=== PATIENT | female | born 1975 | race Caucasian/White ===

== ENCOUNTER → 2018-02-14 16:46 | Outpatient (CLI) | payer OTHER, SELFPAY ==
[2018-02-14 18:31] LABS: Hemoglobin A1c 8.2 % (4.2-6.3)
== END ==
PROVIDERS: Family Provider Internal Medicine; PCP Internal Medicine; Visit Provider Internal Medicine
DX: E11.65 Type 2 diabetes mellitus with hyperglycemia (principal)
CPT/HCPCS: 36415; 83036

== ENCOUNTER → 2018-05-04 14:17 | Outpatient (CLI) | payer OTHER, SELFPAY ==
--- NOTE | 2018-05-04 14:23 | RAD_ITS ---
STUDY: X-RAY - RIGHT FOOT CLINICAL: Pain. TECHNIQUE: 3 view(s) of the foot. COMPARISON: None. FINDINGS: There is a small plantar calcaneal enthesophyte. Normal visualized subtalar, talonavicular, calcaneocuboid, tarsal and tarsometatarsal articulations. There is mild enthesopathy at the base of the fifth metatarsal. Normal metatarsophalangeal joint of the great toe. Normal tibial and fibular sesamoid bones. Normal interphalangeal joint of the great toe. Normal phalanges of the great toe. Normal second through fifth metatarsophalangeal joints. Normal interphalangeal joints and phalanges of the lesser toes. The soft tissue structures are unremarkable. RAD/Foot min 3 Views IMPRESSION: Calcaneal and fifth metatarsal enthesopathy. Otherwise, unremarkable x-ray examination of the right foot. Electronically Signed: Albaro Michele MD at 13:46 EDT Tel , Service support ,
== END ==
PROVIDERS: Family Provider Internal Medicine; PCP Internal Medicine; Referring Provider Nurse Practitioner; Visit Provider Nurse Practitioner
DX: M79.671 Pain in right foot (principal)
CPT/HCPCS: 73630

== ENCOUNTER → 2018-08-23 15:17 | Outpatient (CLI) | payer OTHER, SELFPAY ==
[2018-08-27 11:07] LABS: HPV HC, High Risk Negative (Negative)
== END ==
PROVIDERS: Visit Provider Obstetrics & Gynecology
DX: Z12.4 Encounter for screening for malignant neoplasm of cervix (principal)
CPT/HCPCS: 87624; 88175; G0145

== ENCOUNTER → 2018-09-02 15:42 | Outpatient (CLI) | payer OTHER, SELFPAY ==
--- NOTE | 2018-09-02 15:45 | MRI_ITS ---
STUDY: MRI RIGHT REARFOOT WITHOUT CONTRAST REASON FOR EXAM: Pain, swelling and burning of right foot since summer. TECHNIQUE: Standardized fat and water weighted pulse sequences were obtained in all 3 orthogonal planes. COMPARISON: Radiographs 05/04/2018. FINDINGS: There is edema in the anterior subcutis adipose space of the distal lower leg. There is no space-occupying lesion in the tarsal tunnel. Normal posterior tibialis tendon. Normal flexor digitorum longus tendon. Normal flexor hallucis longus tendon. Normal peroneus longus and brevis tendons. Normal tibialis anterior tendon. Normal extensor hallucis longus tendon. Normal extensor digitorum longus tendons. Normal Achilles tendon and teno-osseous insertion. There is a low-lying soleus muscle (T1 sagittal image 9). There is mild periaponeurotic edema of the central cord of plantar fascia (inversion recovery sagittal image 8). There is a small plantar calcaneal enthesophyte. Normal intrinsic muscles of the rearfoot. Normal distal tibiofibular syndesmotic ligamentous complex. Normal lateral ligamentous complex. There are small cysts in the sinus tarsi (inversion recovery sagittal images 13, 14). There is mild reactive bone edema in the talus adjacent to the sinus tarsi (inversion recovery sagittal images 11, 12). Normal deltoid ligamentous complexes. Normal plantar calcaneonavicular (spring) ligament. Normal tibiotalar articulation. Normal talar dome. Normal subtalar articulations. Normal talonavicular articulation. Normal calcaneocuboid articulation. Normal navicular-cuneiform articulations. There is no bone edema or stress fracture of the fifth metatarsal. MRI/Lower Ext/No Jt/w/o IMPRESSION: Mild plantar fasciitis. Small cyst in the sinus tarsi and mild reactive bone edema in the talus adjacent to the sinus tarsi. No demonstrated peroneal tendinosis/tenosynovitis or fifth metatarsal stress fracture. Electronically Signed: Albaro Michele MD at 9:13 EST Tel , Service support ,
== END ==
PROVIDERS: Family Provider Internal Medicine; PCP Internal Medicine; Referring Provider Podiatrist; Visit Provider Podiatrist
DX: M76.71 Peroneal tendinitis, right leg (principal); M84.374A Stress fracture, right foot, initial encounter for fracture; M72.2 Plantar fascial fibromatosis
CPT/HCPCS: 73718

== ENCOUNTER → 2018-11-04 09:07 | Outpatient (CLI) | payer OTHER, SELFPAY ==
--- NOTE | 2018-11-04 09:12 | RAD_ITS ---
STUDY: X-RAY CHEST REASON FOR EXAM: Female, 43 years old. Fever, cough, chills TECHNIQUE: PA and lateral views of the chest. COMPARISON: None. FINDINGS: The lungs are clear and expanded. There is no demonstrated pleural abnormality. Normal size heart. Normal mediastinum and heather. Normal visualized pulmonary arteries. Normal visualized aortic arch and descending thoracic aorta. Normal visualized thoracic spine. Normal visualized ribs, clavicles, and shoulders. There is no demonstrated abnormality of the visualized soft tissue structures of the upper abdomen. RAD/Chest PA and Lateral IMPRESSION: Normal x-ray examination of the chest. Electronically Signed: Jaime Caraballo MD at 12:19 EDT , Service support ,
== END ==
PROVIDERS: Family Provider Internal Medicine; PCP Internal Medicine; Referring Provider Internal Medicine; Visit Provider Internal Medicine
DX: R09.89 Other specified symptoms and signs involving the circulatory and respiratory systems (principal)
CPT/HCPCS: 71046

== ENCOUNTER → 2018-11-25 12:59 | Outpatient (CLI) | payer OTHER, SELFPAY ==
--- NOTE | 2018-11-25 13:01 | BI_ITS ---
MAMMOGRAPHY - BILATERAL SCREENING REASON FOR EXAM: Female, 43 years old. Routine annual screening examination. PERTINENT HISTORY: Non-contributory. TECHNIQUE: Digital bilateral breast juany (3D mammographic acquisition) in the CC and MLO projections. 2-D mediolateral oblique (MLO) and craniocaudad (CC) views of both breasts were obtained. CAD: Full Field Digital Mammography with Computer Added Detection was performed. COMPARISON: Comparison is made with prior mammogram dated April 25, 2015 and October 19, 2016. FINDINGS: Breast Composition: There are scattered areas of fibroglandular density. Is evidence of a 1.5 cm x 1.8 cm well-defined nodule in the central slightly lateral aspect of the right breast. This also evidence of an 8 mm well-defined nodule in the superior lateral portion of the right breast. Correlation with ultrasound is recommended. No other significant abnormalities are identified. BI/SCREENING MAMM (CAD), BILAT IMPRESSION: 2 nodular densities are seen in the right breast as described. Correlation with ultrasound is recommended. ASSESSMENT CATEGORY: BIRADS Category 0: Incomplete. Need additional imaging evaluation. A letter regarding these results will be sent to the patient by the facility within 30 days. Approximately 10% of breast cancers are not detected by mammography. A normal mammogram should not delay biopsy of a clinically suspicious abnormality. [id number] Electronically Signed: Joshua Garza, at 14:08 EDT , Service support ,
== END ==
PROVIDERS: Family Provider Internal Medicine; PCP Internal Medicine; Referring Provider Obstetrics & Gynecology; Visit Provider Obstetrics & Gynecology
DX: Z12.31 Encounter for screening mammogram for malignant neoplasm of breast (principal)
CPT/HCPCS: 77063; 77067

== ENCOUNTER → 2018-12-02 | Outpatient (CLI) | payer OTHER, SELFPAY ==
--- NOTE | 2018-12-02 15:34 | US_ITS ---
STUDY: ULTRASOUND BREAST - RIGHT REASON FOR EXAM: Female, 43 years old. Abnormal screening mammogram. TECHNIQUE: Axial and longitudinal images of the RIGHT breast were performed with a high resolution ultrasound transducer. COMPARISON: Comparison is made with prior mammogram dated November 25, 2018 and prior ultrasound of the right breast dated April 29, 2015. FINDINGS: RIGHT Breast: There is a 1.7 cm x 1.2 cm x 0.9 cm cyst at the 8:00 position of the breast at 6 I'm is some nipple. This also evidence of a 1 cm x 0.6 cm x 0.4 cm cyst at the 9:00 position of the breast at 7 cm from nipple. US/Breast Limited Unilateral IMPRESSION: The mammographic abnormality corresponds to 2 cysts as described. Routine annual mammographic follow-up is recommended. ASSESSMENT CATEGORY: BIRADS Category 2: Benign. A letter regarding these results will be sent to the patient by the facility within 30 days. Electronically Signed: Joshua Garza, at 13:10 EDT , Service support ,
== END | disposition home or self-care (01) ==
LOC: OPUS 15:32
PROVIDERS: Family Provider Internal Medicine; PCP Internal Medicine; Referring Provider Obstetrics & Gynecology; Visit Provider Obstetrics & Gynecology
DX: N60.01 Solitary cyst of right breast (principal)
CPT/HCPCS: 76642

== ENCOUNTER → 2019-03-16 | Outpatient (CLI) | payer OTHER, SELFPAY ==
[2019-03-16 08:57] LABS: Absolute Lymphocyte Count 1.35 X10^3/uL (0.83-4.51); Absolute Neutrophil Count 2.4 X10^3/uL (2.0-7.7); Basophil# 0.02 X10^3/uL; Basophil% 0.5 % (0-1); Eosinophil# 0.07 X10^3/uL; Eosinophils% 1.7 % (0-5); Hematocrit 40.9 % (37-47); Hemoglobin 13.4 g/dL (12.0-15.0); Lymphocyte # 1.35 X10^3/ul (4.0); Mean Corp Hgb Conc 32.8 g/dL (32-36); Mean Corpuscular Volume 85.4 fL (81-99); Monocyte# 0.25 X10^3/uL; Monocyte% 6.1 % (0-10); NRBC Flagged by Analyzer 0 % (0-5); Neutrophil # 2.39 X10^3/uL (2.7-7.7); Neutrophil % 58.5 % (47-70); Platelet Count 95 K/mm3 (150-450); RBC Distribution Width CV 12.5 % (11.6-14.6); Red Blood Count 4.79 M/mm3 (4.2-5.4); White Blood Count 4.1 K/mm3 (4.4-11.0)
[2019-03-16 09:13] LABS: Differential Comment SCANNED; Platelet Estimate SLT DEC (ADEQ)
[2019-03-16 09:21] LABS: Microalbumin,Random Urine 89.3 mg/L (NO RANGE EST.); Microalbumin:Creatinine Ratio 46.3 mg/g CRE (<30 mg/g CRE)
[2019-03-16 09:31] LABS: AST(SGOT) 117 U/L (15-37); Alanine Aminotransfer ALT/SGPT 64 U/L (13-56); Albumin, Serum 3.5 g/dL (3.2-5.0); Alkaline Phosphatase 91 U/L (45-117); Anion Gap 5 (5-15); BUN 12 mg/dL (7-18); BUN/Creat Ratio 14.1 RATIO (10-20); Calcium,Total 9.1 mg/dL (8.5-10.1); Chloride 103 mmol/L (98-107); Creatinine, Serum 0.85 mg/dL (0.55-1.02); EST Glomerular Filtration Rate 77 mL/min (>60); Est Glom Filt Rate - Afr Amer 93 mL/min (>60); Globulin 3.6 g/dL (2.2-4.2); Glucose 273 mg/dL (74-106); Potassium 4.2 mmol/L (3.5-5.1); Protein, Total 7.1 g/dL (6.4-8.2); Sodium Level 136 mmol/L (136-145); Thyroid Stim Hormone (TSH) 3.05 uIU/mL (0.358-3.74)
[2019-03-16 09:39] LABS: Hemoglobin A1c 9.4 % (4.2-6.3)
[2019-03-17 14:08] LABS: CHOLESTEROL TOTAL 155 mg/dL (100-199); HDL-C 46 mg/dL (>39); HDL-P TOTAL 29.5 umol/L (>=30.5); SMALL LDL-P 751 nmol/L (<=527); TRIGLYCERIDES 127 mg/dL (0-149)
[2019-03-17 15:26] LABS: INSULIN RESISTANCE SCORE 49 (<=45); LDL SIZE 20.4 nm (>20.5); LDL-C 84 mg/dL (0-99); LDL-P 1560 nmol/L (<1000)
== END | disposition home or self-care (01) ==
LOC: LAB.FUTURE 08:06
PROVIDERS: Family Provider Internal Medicine; PCP Internal Medicine; Referring Provider Internal Medicine; Visit Provider Internal Medicine
DX: E11.65 Type 2 diabetes mellitus with hyperglycemia (principal); E78.00 Pure hypercholesterolemia, unspecified
CPT/HCPCS: 36415; 80053; 80061; 82043; 82570; 83036; 83704; 84443; 85025

== ENCOUNTER 2019-04-26 08:02 | Outpatient (RCR) | payer OTHER, SELFPAY | END 2019-05-08 23:59 | LOC: DC 08:02 | PROVIDERS: Family Provider Internal Medicine; PCP Internal Medicine; Visit Provider Internal Medicine | DX: E11.65 Type 2 diabetes mellitus with hyperglycemia (principal); Z71.3 Dietary counseling and surveillance | CPT/HCPCS: G0108 ==

== ENCOUNTER 2019-05-17 14:17 | Outpatient (RCR) | payer OTHER, SELFPAY | END 2019-05-17 23:59 | disposition home or self-care (01) | LOC: DC 14:17 | PROVIDERS: Family Provider Internal Medicine; PCP Internal Medicine; Visit Provider Internal Medicine | DX: Z71.3 Dietary counseling and surveillance (principal); E11.65 Type 2 diabetes mellitus with hyperglycemia | CPT/HCPCS: G0108 ==

== ENCOUNTER → 2019-05-19 07:47 | Outpatient (CLI) | payer OTHER, SELFPAY ==
--- NOTE | 2019-05-19 07:59 | CT_ITS ---
STUDY: CT ABDOMEN WITH CONTRAST REASON FOR EXAM: Female, 44 years old. Left upper quadrant pain RADIATION DOSAGE (If Supplied By Facility): CTDIvol = ( 17.24 ) mGy, DLP = ( 821.82 ) mGycm TECHNIQUE: Transaxial images were obtained post I.V. administration of IV/Oral Isovue 300 100, and oral contrast. Sagittal and coronal images were reconstructed. Individualized dose optimization techniques were used for this CT. COMPARISON: None. FINDINGS: The visualized lung bases are unremarkable. The visualized portions of the heart are within normal limits. The liver is normal. The spleen is normal. The adrenal glands are normal. The head, body, and tail of the pancreas are normal. The kidneys are normal with no evidence of calyceal calculi, masses, or obstructive uropathy seen. The abdominal aorta appears to be normal and no periaortic lymphadenopathy is seen. No abdominal masses or lesions are identified. Bone scan comparison of the lumbar spine were reviewed with coronal and sagittal planes and show no additional abnormalities. No intra-abdominal masses or lesions are seen. CT/Abdomen WITH IV Contrast IMPRESSION: Normal enhanced CT of the abdomen. Electronically Signed: Saul Conway, at 13:33 EDT Tel , Service support ,
== END ==
PROVIDERS: Family Provider Internal Medicine; PCP Internal Medicine; Referring Provider Internal Medicine Gastroenterology; Visit Provider Internal Medicine Gastroenterology
DX: K76.0 Fatty (change of) liver, not elsewhere classified (principal); D69.6 Thrombocytopenia, unspecified
CPT/HCPCS: 74160; Q9967

== ENCOUNTER 2020-01-13 22:03 | Emergency (ER) | payer OTHER, SELFPAY ==
[2020-01-13 22:04] VITALS: BP 149/85; PULSE 69; RESP 15; TEMP 36.3; O2SAT 95; BMI 33.3
--- NOTE | 2020-01-13 22:25 | ED.DCSUM_ITS ---
History of Present Illness Chief Complaint: Other, Pain/Inj Informant: Patient Onset: Yesterday Narrative: Patient was playing with a stray cat that she feeds daily. Cat stepped on her foot and she jerked. This caused him to scratch her toes with the right foot. When she woke today there is some more localized swelling and almost like a blood blister as well as some lymphangitic streaking. No fevers. She believes her last tetanus shot was about 15 years ago. Past Medical History - Allergies and Home Meds Allergies/Adverse Reactions: Allergies amoxicillin [Amoxicillin] Allergy (Verified 01/13/20 22:08) Other Penicillins Allergy (Verified 01/13/20 22:08) Swelling hydromorphone HCl [From Dilaudid] Adverse Reaction (Verified 01/13/20 22:08) Vomiting Sulfa (Sulfonamide Antibiotics) Adverse Reaction (Verified 01/13/20 22:08) Vomiting Primary Care Physician: Laly Schwab DO [Primary Care Provider] - Smoking Status: Never smoker Review of Systems General: Denies: Chills, Fever, Sweats Eyes: Denies: Visual changes - bilaterally, Diplopia ENT: Denies: Rhinorrhea, Sore throat Cardiovascular: Denies: Chest pain, Palpitations Respiratory: Denies: Dyspnea, Cough, Dyspnea on exertion Gastrointestinal: Denies: Abdominal pain, Nausea, Vomiting, Diarrhea, Melena, Hematochezia Genitourinary: Denies: Dysuria, Hematuria, Frequency Musculoskeletal: Denies: Back pain, Extremity Pain Skin: Reports: Wounds. Denies: Rash Neurological: Denies: Headache, Weakness, Numbness Physical Exam Vital Signs/Narrative: Vital Signs Temp Pulse Resp BP Pulse Ox 01/13/20 22:04 97.3 F L 69 15 149/85 H 95 Inital Vital Signs reviewed: Yes General: Well nourished, Well developed, No Acute Distress Head: Normocephalic, Atraumatic Eyes: Perrl, EOMI ENT: Moist mucous membranes, No rhinorrhea Neck: Supple, Nontender Cardiovascular: Regular rate, Regular rhythm, No murmurs Respiratory: No distress, CTA bilaterally, Chest nontender Abdomen: Soft, Nontender, Nondistended, Normal bowel sounds Back: Nontender, Normal Inspection Extremities: Nontender, No edema Skin: No rash, Trauma, - - There is a abrasion with hematoma in the lateral aspect of the toe. There is lymphangitic streaking noted. This extends up to the ankle calf is not a factor. Neurological: Alert, Oriented x3, Cranial nerves II-XII grossly intact, Normal Strength, Normal Sensation Psychological: Normal affect, Normal Mood Diagnostic/Tx/Re-eval - Medical Decision Making Tetanus will be updated with Adacel. Due to penicillin allergy she will be started on doxycycline. Return if worsening or concerns. ED Disposition - Plan for ED Patient: Disposition: Home or Assisted Living Diagnosis: Cat scratch, Lymphangitis Instructions: ED Bite Cat Prescriptions: Doxycycline 100 mg PO BID #20 cap Transmission Status: Pending to [id number] Referrals: Laly Schwab DO [Primary Care Provider] - As Needed
[2020-01-13] MEDS: Doxycycline 100 MG CAPSULE PO (22:43)
[2020-01-13] MEDS: Diphth,Pertuss(Acell),Tet Vac 0.5 ML Vial IM (22:44)
[2020-01-13 23:15] VITALS: RESP 16
--- NOTE | 2020-01-13 23:16 | ED.RN ---
REVIEWED D/C INSTRUCTIONS, FOLLOW UP CARE, PRESCRIPTION, AND S/S THAT WOULD WARRANT A RETURN TO THE ED WITH PT. PT VERBALIZED AN UNDERSTANDING AND DENIES FURTHER QUESTIONS FOR THIS RN. PT SKIN P/W/D, RESP EVEN AND UNLABORED, PT A&O X 3, NO DISTRESS NOTED. PT AMBULATED OUT OF ED, GAIT STEADY.
== END 2020-01-13 23:17 | disposition home or self-care (01) ==
LOC: ED 22:39
PROVIDERS: Emergency Provider Emergency Medicine; PCP Internal Medicine
DX: S90.414A Abrasion, right lesser toe(s), initial encounter (principal); I89.1 Lymphangitis; W55.03XA Scratched by cat, initial encounter; Y93.9 Activity, unspecified; Y92.9 Unspecified place or not applicable
CPT/HCPCS: 90471; 90715; 99283

== ENCOUNTER 2021-02-11 09:42 | Observation (INO) | payer OTHER, SELFPAY ==
[2021-02-11 09:44] VITALS: BP 163/100; PULSE 78; RESP 16; TEMP 37.6; O2SAT 97; BMI 34.0
--- NOTE | 2021-02-11 09:57 | EX.ED.GENINJ ---
HPI History of Present Illness Chief Complaint: Nausea/Vomiting Narrative Narrative: Patient presenting with left knee pain. She states that on Wednesday she tripped in the garage bumping her left knee on the ground floor. She sustained a scrape which is now turned red and ascended down her leg. She states he thinks she might have a low-grade fever. He has been able to ambulate on the leg. She states that now she has nausea and vomiting and think she may have a migraine. Patient's last tetanus was a year ago. [facility] Medical History (Updated 02/11/21 @ 12:48 by Xiao Ritchie) Diabetes Hypertension Migraines Home Medications alprazolam 0.5 mg PO QHS PRN PRN 03/24/15 [History Last Taken Unknown] guaifenesin [Mucinex] 600 mg PO DAILY 03/24/15 [History Last Taken Unknown] propranolol [Inderal LA (Beta Juanita)] 160 mg PO DAILY 03/24/15 [History Last Taken 04/27/17 09:00 160 MG] levocetirizine [Xyzal] 5 mg PO DAILY 04/21/17 [History Last Taken Unknown] levothyroxine 88 mcg PO DAILY 04/21/17 [History Last Taken Unknown] lisinopril 20 mg PO DAILY 01/13/20 [History Last Taken Unknown] dapagliflozin [Farxiga] 10 mg PO DAILY 02/11/21 [History Last Taken Unknown] duloxetine 30 mg PO DAILY 02/11/21 [History Last Taken Unknown] insulin degludec [Tresiba FlexTouch U-100] 20 unit SUBCUT DAILY 02/11/21 [History Last Taken Unknown] Allergy/AdvReac Type Severity Reaction Status Date / Time amoxicillin [Amoxicillin] Allergy Other Verified 02/11/21 09:43 Penicillins Allergy Swelling Verified 02/11/21 09:43 hydromorphone HCl AdvReac Vomiting Verified 02/11/21 09:43 [From Dilaudid] Sulfa (Sulfonamide AdvReac Vomiting Verified 02/11/21 09:43 Antibiotics) Family History (Updated 02/11/21 @ 12:[address] Romle Richards DO) Other Diabetes Surgical History (Updated 02/11/21 @ 12:48 by Xiao Ritchie) History of cholecystectomy Social History (Updated 02/11/21 @ 12:[address] Romel Richards, ) Smoking Status: Never smoker alcohol intake: current details: 1 drink/week substance use type: does not use ROS ROS ED Constitutional Constitutional ED: Reports chills and subjective; Denies sweats Eyes Eyes: Denies blurry vision or change in vision ENT ENT ED: Denies rhinorrhea or sore throat Cardiovascular Cardiovascular: Denies chest pain or palpitations Respiratory/Chest Respiratory/Chest: Denies cough or dyspnea Gastrointestinal Gastrointestinal: Reports nausea and vomiting; Denies abdominal pain Genitourinary Genitourinary ED: Denies dysuria or hematuria Musculoskeletal Musculoskeletal: Reports other Details: Left knee pain Integumentary Reports other Details: Left leg pain and swelling with erythema Neurologic Neurologic: Reports headache(s); Denies paresthesias or weakness Psychiatric Psychiatric: Denies anxiety or depression EXAM Physical Exam Const Vital Signs: 02/11/21 09:44 02/11/21 10:42 Temperature 99.7 F H 99.7 F H Temperature Source Temporal Temporal Pulse Rate 78 78 Respiratory Rate 16 16 Blood Pressure 163/100 H 163/100 H Blood Pressure Mean 121 121 Pulse Ox 97 97 Oxygen Delivery Method Room Air Room Air Positive well nourished General Appearance ED: NAD HEENT atraumatic Eyes PERRL and EOMs intact bilaterally Resp normal respiratory effort and clear to auscultation bilaterally Cardio regular rhythm Rate: regular rate Extremity Extremity Narrative: Superficial abrasion to the patella with swelling and erythema descending down the leg. Patient is able to flex the knee however it is somewhat limited. There is no short arc range of motion pain. Neuro oriented x3 Sensorium / Orientation: alert Psych mental status grossly normal and thought process normal Skin Skin Narrative: Cellulitis as noted above MDM MDM MDM Narrative Medical decision making narrative: Patient presenting with left leg pain secondary to cellulitis. She did fall and injure her knee. Her knee exam is not consistent with septic arthritis. She does have pain in the lower leg and swelling from the cellulitis. She is given 2 doses of morphine and Zofran while in the ED. Her lab work does not show a leukocytosis. Renal function and electrolytes are normal. Her glucose is elevated at 242 however she has no anion gap. X-ray of the left knee shows no acute abnormality. Patient's urinalysis does show 100 leukocyte esterase with occult blood however it is somewhat contaminated with 5-10 epis. She is not complaining of urinary symptoms or flank pain. Patient was discussed with the hospitalist given the extent of the cellulitis. He recommended starting vancomycin. Patient was admitted in stable condition. Lab Data Attestation: I reviewed the patient's lab results. Labs: Laboratory Results - last 24 hr 02/11/21 02/11/21 02/11/21 10:15 10:15 10:25 WBC 6.1 RBC 4.04 L Hgb 9.8 L Hct 31.9 L MCV 79.0 L MCH 24.3 L MCHC 30.7 L RDW Std Deviation 41.1 RDW Coeff of Leanna 14.4 Plt Count 88 L MPV 10.4 Immature Gran % (Auto) 1.000 H Neut % (Auto) 88.1 H Lymph % (Auto) 3.6 L [place] % (Auto) 6.7 Eos % (Auto) 0.3 Baso % (Auto) 0.3 Absolute Neuts (auto) 5.4 Absolute Lymphs (auto) 0.22 L Nucleated RBC % 0 Differential Comment SCANNED Sodium 134 L Potassium 3.9 Chloride 103 Carbon Dioxide 26.0 Anion Gap 5 BUN 10 Creatinine 0.78 Estim Creat Clear Calc 93.18 Est GFR (MDRD) Af Amer 101 Est GFR (MDRD) Non-Af 84 BUN/Creatinine Ratio 12.8 Glucose 242 H Calcium 8.3 L Total Bilirubin 1.00 AST 26 ALT 20 Alkaline Phosphatase 75 Total Protein 7.0 Albumin 3.7 Globulin 3.3 Albumin/Globulin Ratio 1.1 Urine Color Red Urine Clarity Turbid Urine pH 5.0 Ur Specific [place] 1.015 Urine Protein 100 H Urine Glucose (UA) 1000 H Urine Ketones 150 A* Urine Occult Blood 250 H Urine Nitrite Negative Urine Bilirubin Negative Urine Urobilinogen Normal Ur Leukocyte Esterase 100 H Urine RBC > 100 SEEN Urine WBC 10-25 SEEN Ur Squamous Epith Cells 5-10 SEEN Urine Bacteria 1+ Urine Mucus 0 SEEN Radiography Diagnostic Testing: Radiology Impression Knee X-Ray 02/11/21 10:55 IMPRESSION: Normal x-ray examination of the knee. Electronically Signed: Joshua Garza MD at 11:22 EDT , Service support , Discharge Plan Disposition Disposition: Acute Care Hospital [facility] Discharge Date/Time: 02/11/21 12:18
[2021-02-11 10:23] LABS: Absolute Lymphocyte Count 0.22 X10^3/uL (0.83-4.51); Absolute Neutrophil Count 5.4 X10^3/uL (2.0-7.7); Basophil# 0.02 X10^3/uL; Basophil% 0.3 % (0-1); Eosinophil# 0.02 X10^3/uL; Eosinophils% 0.3 % (0-5); Hematocrit 31.9 % (37-47); Hemoglobin 9.8 g/dL (12.0-15.0); Lymphocyte # 0.22 X10^3/ul (0.83-4.51); Lymphocyte % 3.6 % (19-41); Mean Corp Hgb Conc 30.7 g/dL (32-36); Mean Corpuscular Hgb 24.3 pg (27.0-32.0); Mean Platelet Vol. 10.4 fl (6.2-12.0); Monocyte# 0.41 X10^3/uL; Monocyte% 6.7 % (0-10); NRBC Flagged by Analyzer 0 % (0-5); Neutrophil % 88.1 % (47-70); POSITIVE COUNT YES; POSITIVE DIFFERENTIAL YES; Platelet Count 88 K/mm3 (150-450); RBC Distribution Width CV 14.4 % (11.6-14.6); RBC Distribution Width SD 41.1 fl (35.1-43.9); Red Blood Count 4.04 M/mm3 (4.2-5.4); White Blood Count 6.1 K/mm3 (4.4-11.0)
[2021-02-11 10:30] LABS: Mucous, Urine 0 SEEN /hpf (<or=2+)
[2021-02-11 10:32] LABS: Color, Urine Red (Yellow); Glucose, Dipstick 1000 mg/dl (Normal); Leukocyte Esterase-Dipstick 100 /ul (Negative); Nitrite-Dipstick Negative (Negative); Occult Blood-Urine 250 /ul (Negative); Protein-Dipstick 100 mg/dl (Negative); Specific Gravity, Urine 1.015 (1.002-1.030); Urine Bilirubin Dipstick Negative (Negative); Urine Clarity Turbid (Clear); Urine Urobilinogen Normal (Normal)
[2021-02-11 10:36] LABS: Differential Indicated SCAN CRITERIA MET
[2021-02-11] MEDS: Ondansetron 4 MG/2 ML Vial IV ×3 (10:36→18:10)
[2021-02-11] MEDS: 0.9% Normal Saline 1,000 ML 1000 ML IV (10:36)
[2021-02-11] MEDS: Morphine 4 MG/ML Syringe IV ×2 (10:36→11:49)
[2021-02-11 10:39] LABS: Ketone-Dipstick 150 mg/dl (Negative)
[2021-02-11 10:42] VITALS: BP 163/100; PULSE 78; RESP 16; TEMP 37.6; O2SAT 97
[2021-02-11 10:43] LABS: ALB/GLOB Ratio 1.1 RATIO (0.9-2.4); AST(SGOT) 26 U/L (15-37); Alanine Aminotransfer ALT/SGPT 20 U/L (13-56); Albumin, Serum 3.7 g/dL (3.2-5.0); Alkaline Phosphatase 75 U/L (45-117); Anion Gap 5 (5-15); BUN 10 mg/dL (7-18); BUN/Creat Ratio 12.8 RATIO (10-20); Calcium,Total 8.3 mg/dL (8.5-10.1); Chloride 103 mmol/L (98-107); Creatinine, Serum 0.78 mg/dL (0.55-1.02); EST Glomerular Filtration Rate 84 mL/min (>60); Est Glom Filt Rate - Afr Amer 101 mL/min (>60); Estimated Creatinine Clearance 93.18 ml/min; Globulin 3.3 g/dL (2.2-4.2); Glucose 242 mg/dL (74-106); Potassium 3.9 mmol/L (3.5-5.1); Sodium Level 134 mmol/L (136-145)
--- NOTE | 2021-02-11 10:55 | RAD_ITS ---
STUDY: X-RAY - LEFT KNEE REASON FOR EXAM: Female, 45 years old. Knee pain TECHNIQUE: 4 view(s) of the knee. COMPARISON: None. FINDINGS: Normal visualized distal femur. Normal visualized proximal tibia and fibula. Normal proximal tibiofibular articulation. Normal medial femorotibial compartment. Normal lateral femorotibial compartment. Normal patellofemoral articulation. The soft tissue structures are unremarkable. RAD/Knee 4 or More Views IMPRESSION: Normal x-ray examination of the knee. Electronically Signed: Joshua Garza MD at 11:22 EDT , Service support ,
[2021-02-11 11:00] LABS: Bacteria 1+ /hpf (None Seen); Red Blood Cells-Urine > 100 SEEN /hpf (0-5); Squamous Epithelial Cells - UA 5-10 SEEN /hpf (5-10); White Blood Cells 10-25 SEEN /hpf (0-5)
[2021-02-11 11:19] LABS: Differential Comment SCANNED
--- NOTE | 2021-02-11 11:52 | NURSING ---
DR NATANAEL POTTER
--- NOTE | 2021-02-11 12:11 | HP.PCM.HOS_ITS ---
HPI - General General Date of Admission: 02/11/21 Date of Service: 02/11/21 Chief Complaint: N/V HPI Narrative GADIEL BROOKS, is a 45 F who presents left lower extremity redness. Couple days ago patient had fallen on her knee and developed some wounds. Developed redness subsequently afterwards and then started to have intractable nausea and vomiting. Presented to the emergency room with left lower extremity cellulitis. Patient was ordered IV vancomycin. She denies any history of cellulitis. [facility] Medical History Diabetes Hypertension Home Medications alprazolam 0.5 mg PO QHS PRN PRN 03/24/15 [History Last Taken Unknown] guaifenesin [Mucinex] 600 mg PO DAILY 03/24/15 [History Last Taken Unknown] propranolol [Inderal LA (Beta Juanita)] 160 mg PO DAILY 03/24/15 [History Last Taken 04/27/17 09:00 160 MG] levocetirizine [Xyzal] 5 mg PO DAILY 04/21/17 [History Last Taken Unknown] levothyroxine 88 mcg PO DAILY 04/21/17 [History Last Taken Unknown] sitagliptin [Januvia] 100 mg PO DAILY 04/21/17 [History Last Taken Unknown] doxycycline monohydrate 100 mg PO BID #20 cap 01/13/20 [Rx Last Taken Unknown] insulin degludec 10 unit SQ DAILY 01/13/20 [History Last Taken Unknown] lisinopril 20 mg PO DAILY 01/13/20 [History Last Taken Unknown] Allergy/AdvReac Type Severity Reaction Status Date / Time amoxicillin [Amoxicillin] Allergy Other Verified 02/11/21 09:43 Penicillins Allergy Swelling Verified 02/11/21 09:43 hydromorphone HCl AdvReac Vomiting Verified 02/11/21 09:43 [From Dilaudid] Sulfa (Sulfonamide AdvReac Vomiting Verified 02/11/21 09:43 Antibiotics) Family History (Updated 02/11/21 @ 12:[address] Romel Richards DO) Other Diabetes Social History (Updated 02/11/21 @ 12:[address] Romel Richards DO) Smoking Status: Never smoker alcohol intake: current details: 1 drink/week substance use type: does not use ROS ROS Narrative All review of systems were negative except as mentioned above in the history of present illness and the other review of systems. Constitutional Constitutional: Reports chills and fever(s) Cardiovascular Cardiovascular: Reports chest pain Respiratory/Chest Respiratory/Chest: Reports cough Gastrointestinal Gastrointestinal: Reports abdominal pain, nausea and vomiting Vital Signs Vital Signs Vital Signs: 02/11/21 09:44 02/11/21 10:42 Temperature 37.6 C H 37.6 C H Temperature Source Temporal Temporal Pulse Rate 78 78 Respiratory Rate 16 16 Blood Pressure 163/100 H 163/100 H Blood Pressure Mean 121 121 Pulse Ox 97 97 Oxygen Delivery Method Room Air Room Air Weight Weight: 104.4 kg Body Mass Index (BMI) 34.0 Physical Exam Const alert General Appearance: cooperative HEENT normocephalic Resp normal respiratory effort, no retractions and no use of accessory muscles Cardio regular rate, regular rhythm, S1 normal heart sound and S2 normal heart sound GI normal to inspection, nondistended, normoactive bowel sounds, soft to palpation, non-tender and non-distended Extremity normal to inspection Skin Skin Narrative: Compliant macular rash on left anterior rock exam from her ankle to just below her knee. Patient did have some abrasions superior to her knee but was not confluent with area of cellulitis. Neuro Sensorium / Orientation: awake and alert Psych affect normal Results Lab / Micro Data Attestation: I reviewed the patient's lab results. Result Diagrams: 02/11/21 10:15 02/11/21 10:15 Labs: Laboratory Results - last 24 hr 02/11/21 02/11/21 02/11/21 10:15 10:15 10:25 WBC 6.1 RBC 4.04 L Hgb 9.8 L Hct 31.9 L MCV 79.0 L MCH 24.3 L MCHC 30.7 L RDW Std Deviation 41.1 RDW Coeff of Leanna 14.4 Plt Count 88 L MPV 10.4 Immature Gran % (Auto) 1.000 H Neut % (Auto) 88.1 H Lymph % (Auto) 3.6 L [place] % (Auto) 6.7 Eos % (Auto) 0.3 Baso % (Auto) 0.3 Absolute Neuts (auto) 5.4 Absolute Lymphs (auto) 0.22 L Nucleated RBC % 0 Differential Comment SCANNED Sodium 134 L Potassium 3.9 Chloride 103 Carbon Dioxide 26.0 Anion Gap 5 BUN 10 Creatinine 0.78 Estim Creat Clear Calc 93.18 Est GFR (MDRD) Af Amer 101 Est GFR (MDRD) Non-Af 84 BUN/Creatinine Ratio 12.8 Glucose 242 H Calcium 8.3 L Total Bilirubin 1.00 AST 26 ALT 20 Alkaline Phosphatase 75 Total Protein 7.0 Albumin 3.7 Globulin 3.3 Albumin/Globulin Ratio 1.1 Urine Color Red Urine Clarity Turbid Urine pH 5.0 Ur Specific [place] 1.015 Urine Protein 100 H Urine Glucose (UA) 1000 H Urine Ketones 150 A* Urine Occult Blood 250 H Urine Nitrite Negative Urine Bilirubin Negative Urine Urobilinogen Normal Ur Leukocyte Esterase 100 H Urine RBC > 100 SEEN Urine WBC 10-25 SEEN Ur Squamous Epith Cells 5-10 SEEN Urine Bacteria 1+ Urine Mucus 0 SEEN Radiology Impression Knee X-Ray 02/11/21 10:55 IMPRESSION: Normal x-ray examination of the knee. Electronically Signed: Joshua Garza MD at 11:22 EDT , Service support , Assessment & Plan Assessment/Plan (1) Cellulitis and abscess of left leg: (2) Nausea and vomiting in adult: PLAN: 1. Left lower extremity cellulitis * No evidence of sepsis. qSOFA score of 0 * Concern for staph or strep * Check MRSA screen * Continue with vancomycin * No need for any additional imaging of the leg unless condition deteriorates. No clinical evidence of necrotizing fasciitis 2. Nausea and vomiting * Secondary to the underlying infection * Supportive management 3. Diabetes mellitus type 2 * Continue with home meds and sign scale insulin 4. VTE prophylaxis: Hold for now given anticipate observation stay. If hospitalization would be prolonged then would recommend initiation of enoxaparin Charges/Coding Visit Charges OBSV E&M: 81630 Initial observation care L3
[2021-02-11 12:17] VITALS: BP 154/97; PULSE 87; RESP 16; TEMP 37.6; O2SAT 98
[2021-02-11 12:43] VITALS: BMI 34.2
[2021-02-11 12:49] VITALS: BP 147/66; PULSE 77; RESP 16; TEMP 37.2; O2SAT 99
[2021-02-11] MEDS: 0.9% Normal Saline 1,000 ML 200 ML IV ×2 (13:11→20:56)
[2021-02-11 16:10] LABS: M R Staph aureus DNA By PCR Negative (Negative)
[2021-02-11 16:11] LABS: Probe Check PASS; Specimen Processing Control PASS; Staph aureus DNA By PCR NEGATIVE (Negative)
[2021-02-11] MEDS: Acetaminophen 325 MG Tablet 650 MG PO (16:48)
[2021-02-11] MEDS: Insulin Lispro 100 UNIT/ML INSULN.PEN SC (16:48)
[2021-02-11] MEDS: Loratadine 10 MG Tablet PO (16:49)
[2021-02-11] MEDS: guaiFENesin 600 MG Tablet PO (16:49)
[2021-02-11] MEDS: Propranolol LA 80 MG Capsule 160 MG PO (16:51)
[2021-02-11 16:55] VITALS: BP 119/60; PULSE 79; RESP 18; TEMP 38.3; O2SAT 100
[2021-02-11 17:01] LABS: Bedside Glucose 227 mg/dL (70-110)
[2021-02-11] MEDS: oxyCODONE 5 MG Tablet 10 MG PO ×2 (18:07→22:56)
[2021-02-11 22:50] VITALS: BP 130/60; PULSE 70; RESP 16; TEMP 37.4; O2SAT 95
[2021-02-11] MEDS: ALPRAZolam 0.5 MG Tablet PO (22:55)
[2021-02-11 23:21] LABS: Bedside Glucose 215 mg/dL (70-110)
[2021-02-12 02:55] VITALS: BP 116/64; PULSE 76; RESP 16; TEMP 36.6; O2SAT 96
[2021-02-12 06:18] LABS: Absolute Neutrophil Count 2.7 X10^3/uL (2.0-7.7); Basophil# 0.01 X10^3/uL; Basophil% 0.3 % (0-1); Eosinophil# 0.03 X10^3/uL; Eosinophils% 0.8 % (0-5); Hematocrit 29.6 % (37-47); Lymphocyte % 15.4 % (19-41); Mean Corp Hgb Conc 30.4 g/dL (32-36); Mean Corpuscular Hgb 24.3 pg (27.0-32.0); Mean Platelet Vol. 10.4 fl (6.2-12.0); Monocyte# 0.52 X10^3/uL; Monocyte% 13.3 % (0-10); NRBC Flagged by Analyzer 0 % (0-5); Neutrophil % 69.2 % (47-70); POSITIVE COUNT YES; POSITIVE DIFFERENTIAL YES; Platelet Count 76 K/mm3 (150-450); RBC Distribution Width CV 14.9 % (11.6-14.6); RBC Distribution Width SD 43.3 fl (35.1-43.9); White Blood Count 3.9 K/mm3 (4.4-11.0)
[2021-02-12 06:33] LABS: Differential Indicated SCAN CRITERIA MET
[2021-02-12 06:42] LABS: ALB/GLOB Ratio 0.8 RATIO (0.9-2.4); AST(SGOT) 16 U/L (15-37); Alanine Aminotransfer ALT/SGPT 16 U/L (13-56); Albumin, Serum 2.5 g/dL (3.2-5.0); Alkaline Phosphatase 63 U/L (45-117); Anion Gap 8 (5-15); BUN 9 mg/dL (7-18); BUN/Creat Ratio 10.6 RATIO (10-20); Calcium,Total 7.2 mg/dL (8.5-10.1); Chloride 107 mmol/L (98-107); Creatinine, Serum 0.85 mg/dL (0.55-1.02); EST Glomerular Filtration Rate 76 mL/min (>60); Est Glom Filt Rate - Afr Amer 92 mL/min (>60); Estimated Creatinine Clearance 85.51 ml/min; Globulin 3.2 g/dL (2.2-4.2); Glucose 212 mg/dL (74-106); Potassium 3.6 mmol/L (3.5-5.1); Protein, Total 5.7 g/dL (6.4-8.2); Sodium Level 135 mmol/L (136-145)
[2021-02-12] MEDS: 0.9% Saline Lock 10 ML Syringe IV ×5 (06:52→22:46)
[2021-02-12] MEDS: Levothyroxine 88 MCG Tablet PO (06:53)
[2021-02-12 06:57] LABS: Differential Comment SCANNED
[2021-02-12] MEDS: Ondansetron 4 MG/2 ML Vial IV ×2 (06:57→15:47)
[2021-02-12 06:58] LABS: Platelet Estimate MOD DEC (ADEQ)
[2021-02-12] MEDS: Acetaminophen 325 MG Tablet 650 MG PO ×2 (06:58→22:44)
[2021-02-12] MEDS: oxyCODONE 5 MG Tablet 10 MG PO (06:59)
[2021-02-12] MEDS: Insulin Lispro 100 UNIT/ML INSULN.PEN SC ×3 (07:06→16:33)
[2021-02-12 07:16] LABS: Bedside Glucose 207 mg/dL (70-110)
[2021-02-12 07:43] LABS: Ferritin 53 ng/mL (8-252); Iron 43 ug/dL (50-170); Iron Binding Capacity,Total 527 ug/dL (250-450); PERCENT IRON SATURATION 8.2 % (15.0-55.0)
[2021-02-12 07:49] VITALS: BP 120/61; PULSE 66; RESP 16; TEMP 37.3; O2SAT 94
--- NOTE | 2021-02-12 07:58 | NURSING ---
pt states she has been fully vaccinated with COVID vaccine.
[2021-02-12] MEDS: Ketorolac 15 MG/ML Vial IV (08:03)
[2021-02-12] MEDS: guaiFENesin 600 MG Tablet PO (08:57)
[2021-02-12] MEDS: Loratadine 10 MG Tablet PO (08:57)
[2021-02-12] MEDS: LINAGLIPTIN 5 MG TABLET PO (08:57)
[2021-02-12] MEDS: Propranolol LA 80 MG Capsule 160 MG PO (08:57)
[2021-02-12] MEDS: Lisinopril 20 MG Tablet PO (08:57)
--- NOTE | 2021-02-12 09:56 | PN.HOSP_ITS ---
Subjective Subjective +headache and nausea. Still with pain LLE with ambulation. Vomited later this AM. Objective Data Objective Data Vital Signs: Vital Signs Temp Pulse Resp BP Pulse Ox 37.3 C H 66 16 120/61 94 02/12/21 07:49 02/12/21 07:49 02/12/21 07:49 02/12/21 07:49 02/12/21 07:49 Oxygen Delivery Method Room Air Weight: 105.2 kg Body Mass Index (BMI) 34.2 Intake & Output: Intake and Output for Last 24 Hours 02/10/21 02/11/21 02/12/21 23:59 23:59 23:59 Intake Total 3796.67 / 3796.67 1523.33 / 1523.33 Balance 3796.67 / 3796.67 1523.33 / 1523.33 Lab / Micro Data Result Diagrams: 02/12/21 05:22 02/12/21 05:22 Labs: Laboratory Results - last 24 hr 02/11/21 02/11/21 02/11/21 10:15 10:15 10:25 WBC 6.1 RBC 4.04 L Hgb 9.8 L Hct 31.9 L MCV 79.0 L MCH 24.3 L MCHC 30.7 L RDW Std Deviation 41.1 RDW Coeff of Leanna 14.4 Plt Count 88 L MPV 10.4 Immature Gran % (Auto) 1.000 H Neut % (Auto) 88.1 H Lymph % (Auto) 3.6 L [place] % (Auto) 6.7 Eos % (Auto) 0.3 Baso % (Auto) 0.3 Absolute Neuts (auto) 5.4 Absolute Lymphs (auto) 0.22 L Nucleated RBC % 0 Differential Comment SCANNED Diff Path Review Platelet Estimate Sodium 134 L Potassium 3.9 Chloride 103 Carbon Dioxide 26.0 Anion Gap 5 BUN 10 Creatinine 0.78 Estim Creat Clear Calc 93.18 Est GFR (MDRD) Af Amer 101 Est GFR (MDRD) Non-Af 84 BUN/Creatinine Ratio 12.8 Glucose 242 H Calcium 8.3 L Iron TIBC Iron Saturation Ferritin Total Bilirubin 1.00 AST 26 ALT 20 Alkaline Phosphatase 75 Total Protein 7.0 Albumin 3.7 Globulin 3.3 Albumin/Globulin Ratio 1.1 Urine Color Red Urine Clarity Turbid Urine pH 5.0 Ur Specific [place] 1.015 Urine Protein 100 H Urine Glucose (UA) 1000 H Urine Ketones 150 A* Urine Occult Blood 250 H Urine Nitrite Negative Urine Bilirubin Negative Urine Urobilinogen Normal Ur Leukocyte Esterase 100 H Urine RBC > 100 SEEN Urine WBC 10-25 SEEN Ur Squamous Epith Cells 5-10 SEEN Urine Bacteria 1+ Urine Mucus 0 SEEN S.aureus Protein A PCR MRSA (PCR) POC Glucose 02/11/21 02/11/21 02/11/21 13:25 16:44 23:10 WBC RBC Hgb Hct MCV MCH MCHC RDW Std Deviation RDW Coeff of Leanna Plt Count MPV Immature Gran % (Auto) Neut % (Auto) Lymph % (Auto) [place] % (Auto) Eos % (Auto) Baso % (Auto) Absolute Neuts (auto) Absolute Lymphs (auto) Nucleated RBC % Differential Comment Diff Path Review Platelet Estimate Sodium Potassium Chloride Carbon Dioxide Anion Gap BUN Creatinine Estim Creat Clear Calc Est GFR (MDRD) Af Amer Est GFR (MDRD) Non-Af BUN/Creatinine Ratio Glucose Calcium Iron TIBC Iron Saturation Ferritin Total Bilirubin AST ALT Alkaline Phosphatase Total Protein Albumin Globulin Albumin/Globulin Ratio Urine Color Urine Clarity Urine pH Ur Specific [place] Urine Protein Urine Glucose (UA) Urine Ketones Urine Occult Blood Urine Nitrite Urine Bilirubin Urine Urobilinogen Ur Leukocyte Esterase Urine RBC Urine WBC Ur Squamous Epith Cells Urine Bacteria Urine Mucus S.aureus Protein A PCR NEGATIVE MRSA (PCR) Negative POC Glucose 227 H 215 H 02/12/21 02/12/21 02/12/21 05:14 05:22 05:22 WBC 3.9 L RBC 3.70 L Hgb 9.0 L Hct 29.6 L MCV 80.0 L MCH 24.3 L MCHC 30.4 L RDW Std Deviation 43.3 RDW Coeff of Leanna 14.9 H Plt Count 76 L MPV 10.4 Immature Gran % (Auto) 1.000 H Neut % (Auto) 69.2 Lymph % (Auto) 15.4 L [place] % (Auto) 13.3 H Eos % (Auto) 0.8 Baso % (Auto) 0.3 Absolute Neuts (auto) 2.7 Absolute Lymphs (auto) 0.60 L Nucleated RBC % 0 Differential Comment SCANNED Diff Path Review May foll Platelet Estimate MOD DEC Sodium 135 L Potassium 3.6 Chloride 107 Carbon Dioxide 20.0 L Anion Gap 8 BUN 9 Creatinine 0.85 Estim Creat Clear Calc 85.51 Est GFR (MDRD) Af Amer 92 Est GFR (MDRD) Non-Af 76 BUN/Creatinine Ratio 10.6 Glucose 212 H Calcium 7.2 L Iron 43 L TIBC 527 H Iron Saturation 8.2 L Ferritin 53 Total Bilirubin 0.40 AST 16 ALT 16 Alkaline Phosphatase 63 Total Protein 5.7 L Albumin 2.5 L Globulin 3.2 Albumin/Globulin Ratio 0.8 L Urine Color Urine Clarity Urine pH Ur Specific [place] Urine Protein Urine Glucose (UA) Urine Ketones Urine Occult Blood Urine Nitrite Urine Bilirubin Urine Urobilinogen Ur Leukocyte Esterase Urine RBC Urine WBC Ur Squamous Epith Cells Urine Bacteria Urine Mucus S.aureus Protein A PCR MRSA (PCR) POC Glucose 02/12/21 07:05 WBC RBC Hgb Hct MCV MCH MCHC RDW Std Deviation RDW Coeff of Leanna Plt Count MPV Immature Gran % (Auto) Neut % (Auto) Lymph % (Auto) [place] % (Auto) Eos % (Auto) Baso % (Auto) Absolute Neuts (auto) Absolute Lymphs (auto) Nucleated RBC % Differential Comment Diff Path Review Platelet Estimate Sodium Potassium Chloride Carbon Dioxide Anion Gap BUN Creatinine Estim Creat Clear Calc Est GFR (MDRD) Af Amer Est GFR (MDRD) Non-Af BUN/Creatinine Ratio Glucose Calcium Iron TIBC Iron Saturation Ferritin Total Bilirubin AST ALT Alkaline Phosphatase Total Protein Albumin Globulin Albumin/Globulin Ratio Urine Color Urine Clarity Urine pH Ur Specific [place] Urine Protein Urine Glucose (UA) Urine Ketones Urine Occult Blood Urine Nitrite Urine Bilirubin Urine Urobilinogen Ur Leukocyte Esterase Urine RBC Urine WBC Ur Squamous Epith Cells Urine Bacteria Urine Mucus S.aureus Protein A PCR MRSA (PCR) POC Glucose 207 H Radiography Diagnostic Testing: Radiology Impression Knee X-Ray 02/11/21 10:55 IMPRESSION: Normal x-ray examination of the knee. Electronically Signed: Joshua Garza MD at 11:22 EDT , Service support , Physical Exam Const alert Constitutional Narrative: uncomfortable. afebrile. HEENT HEENT Narrative: frontal and maxillary sinus tenderness. Resp normal respiratory effort, no use of accessory muscles and clear to auscultation bilaterally Cardio regular rate, regular rhythm, S1 normal heart sound and S2 normal heart sound GI normal to inspection, nondistended, normoactive bowel sounds, soft to palpation, non-tender and non-distended Extremity normal to inspection Skin Skin Narrative: decreased erythema of LLE Assessment & Plan Assessment/Plan (1) Cellulitis and abscess of left leg: (2) Nausea and vomiting in adult: PLAN: 1. Left lower extremity cellulitis * Improving * No evidence of sepsis. qSOFA score of 0 * Concern for staph or strep * Check MRSA screen * Continue with vancomycin * No need for any additional imaging of the leg unless condition deteriorates. No clinical evidence of necrotizing fasciitis 2. Nausea and vomiting * Ongoing * Secondary to the underlying infection * Supportive management 3. Diabetes mellitus type 2 * Continue with home meds and sign scale insulin 4. VTE prophylaxis: Hold for now given anticipate observation stay. If hospitalization would be prolonged then would recommend initiation of enoxaparin 5. Migraine * worse today. Will utilize ketorolac. Charges/Coding Visit Charges OBSV E&M: 99042 Subsequent observation care L2
[2021-02-12] MEDS: 0.9% Normal Saline 1,000 ML 150 ML IV (10:00)
[2021-02-12] MEDS: proCHLORPERazine 10 MG/2 ML Vial 5 MG IV ×3 (10:01→22:46)
[2021-02-12 12:16] LABS: Pathologist Review Reviewed
[2021-02-12 14:04] VITALS: BP 145/78; PULSE 55; RESP 18; TEMP 36.5; O2SAT 100
[2021-02-12 14:41] LABS: Bedside Glucose 275 mg/dL (70-110)
[2021-02-12] MEDS: Meclizine HCl 25 MG Tablet PO (15:47)
[2021-02-12 16:41] LABS: Bedside Glucose 233 mg/dL (70-110)
[2021-02-12 17:37] VITALS: BP 127/78; PULSE 60; RESP 18; TEMP 36.9; O2SAT 100
--- NOTE | 2021-02-12 17:54 | MRI_ITS ---
HISTORY: headache -- brain bleeds 2000- from fall, pt states no clipping or cautery EXAMINATION: MR Brain W/O Contrast TECHNIQUE: Multiplanar and multisequence MR images of the brain were obtained without gadolinium. IV Contrast dosage and agent: None. COMPARISON: None FINDINGS: BRAIN PARENCHYMA: No MRI evidence of hemorrhage. No evidence of acute infarct. No intracranial mass or mass effect. There is preservation of the gao/white matter interface. Normal sella turcica, pituitary gland, infundibular stalk, optic chiasm and hypothalamus. The internal auditory canals are patent. Posterior fossa structures are unremarkable. CSF SPACES: Appropriate for age. No hydrocephalus. Basal cisterns are patent. VASCULAR SYSTEM: Normal flow voids in the major intracranial circulation. CALVARIUM, SKULL BASE, PARANASAL SINUSES AND MASTOID AIR CELLS: Clear. No discrete lytic or blastic abnormalities. ORBITS: Both globes, extraocular muscles, optic nerves and retrobulbar fat appear unremarkable. MRI/Brain without Contrast IMPRESSION: Negative MRI Brain without contrast. at 2148 Reported and signed by: Peter Sánchez MD Electronically Signed: Peter Sánchez MD at 21:47 EDT Tel , Service support ,
[2021-02-12] MEDS: 0.9% Normal Saline 1,000 ML 125 ML IV (22:27)
[2021-02-12 22:33] VITALS: BP 164/90; PULSE 68; RESP 17; TEMP 37.4; O2SAT 100
[2021-02-12] MEDS: ALPRAZolam 0.5 MG Tablet PO (22:44)
[2021-02-12 23:01] LABS: Bedside Glucose 227 mg/dL (70-110)
[2021-02-13 03:16] VITALS: BP 125/61; PULSE 74; RESP 15; TEMP 37.2; O2SAT 100
[2021-02-13] MEDS: Insulin Lispro 100 UNIT/ML INSULN.PEN SC ×2 (06:37→11:23)
[2021-02-13] MEDS: Acetaminophen 325 MG Tablet 650 MG PO (06:40)
[2021-02-13] MEDS: Levothyroxine 88 MCG Tablet PO (06:40)
[2021-02-13 06:41] LABS: Bedside Glucose 228 mg/dL (70-110)
[2021-02-13 06:47] LABS: Absolute Lymphocyte Count 0.53 X10^3/uL (0.83-4.51); Absolute Neutrophil Count 1.5 X10^3/uL (2.0-7.7); Basophil# 0.01 X10^3/uL; Basophil% 0.4 % (0-1); Eosinophils% 4.1 % (0-5); Hematocrit 30.1 % (37-47); Hemoglobin 8.8 g/dL (12.0-15.0); Lymphocyte # 0.53 X10^3/ul (0.83-4.51); Lymphocyte % 21.7 % (19-41); Mean Corp Hgb Conc 29.2 g/dL (32-36); Mean Platelet Vol. 10.6 fl (6.2-12.0); Monocyte% 12.3 % (0-10); NRBC Flagged by Analyzer 0 % (0-5); Neutrophil # 1.49 X10^3/uL (2.7-7.7); Neutrophil % 61.1 % (47-70); POSITIVE COUNT YES; POSITIVE DIFFERENTIAL YES; Platelet Count 81 K/mm3 (150-450); RBC Distribution Width CV 14.6 % (11.6-14.6); RBC Distribution Width SD 43.3 fl (35.1-43.9); Red Blood Count 3.67 M/mm3 (4.2-5.4); White Blood Count 2.4 K/mm3 (4.4-11.0)
[2021-02-13 07:02] LABS: Differential Indicated SCAN CRITERIA MET
[2021-02-13 07:08] LABS: Platelet Estimate MOD DEC (ADEQ)
[2021-02-13 07:15] LABS: Anion Gap 3 (5-15); BUN 9 mg/dL (7-18); BUN/Creat Ratio 10.2 RATIO (10-20); Calcium,Total 8.3 mg/dL (8.5-10.1); Chloride 110 mmol/L (98-107); Creatinine, Serum 0.88 mg/dL (0.55-1.02); EST Glomerular Filtration Rate 73 mL/min (>60); Est Glom Filt Rate - Afr Amer 88 mL/min (>60); Estimated Creatinine Clearance 82.59 ml/min; Glucose 226 mg/dL (74-106); Potassium 3.7 mmol/L (3.5-5.1); Sodium Level 139 mmol/L (136-145)
[2021-02-13 08:08] VITALS: BP 155/72; PULSE 72; RESP 18; TEMP 36.9; O2SAT 97
--- NOTE | 2021-02-13 08:31 | VDLE_ITS ---
Reason For Study: Swelling Procedure LEFT This is a venous duplex using B-mode, color GSV is normal. flow and spectral Doppler. CFV is compressible, spontaneous, phasic, Exam performed portable in patient room. competent, and demonstrates normal A preliminary report was called and/or faxed augmentation. to [facility]. FV is compressible, spontaneous, phasic, competent and demonstrates normal augmentation. POP V is compressible, spontaneous, phasic, competent and demonstrates normal augmentation. T/P Trunk is compressible. PTV is compressible. LT PerV is compressible. VL/Venous Duplex US, Unilateral Interpretation Summary There is no evidence of left lower extremity deep vein thrombosis. Left great s aphenous vein appears patent and compressible segmentally. Ordering Physician: Romel Richards Referring Physician: Laly Schwab M.D. Performed By: Yolande Quiñonez RVT and Student
[2021-02-13] MEDS: 0.9% Normal Saline 1,000 ML 125 ML IV (09:48)
[2021-02-13] MEDS: Propranolol LA 80 MG Capsule 160 MG PO (09:56)
[2021-02-13] MEDS: Lisinopril 20 MG Tablet PO (09:56)
[2021-02-13] MEDS: guaiFENesin 600 MG Tablet PO (09:56)
[2021-02-13] MEDS: Loratadine 10 MG Tablet PO (09:56)
[2021-02-13] MEDS: LINAGLIPTIN 5 MG TABLET PO (09:56)
[2021-02-13 10:05] LABS: Vancomycin, Trough Level 15.3 ug/mL (5.0-15.0)
[2021-02-13 11:35] LABS: Bedside Glucose 272 mg/dL (70-110)
--- NOTE | 2021-02-13 11:35 | PCM.RX.CS ---
Consult Pharmacy has been consulted to manage selected antiobiotic: Vancomycin Type of Consult: Follow-up Suspected Infection: Skin/Soft tissue Labs: Sodium 139 mmol/L (136-145) 02/13/21 05:50 Potassium 3.7 mmol/L (3.5-5.1) 02/13/21 05:50 Chloride 110 mmol/L (98-107) H 02/13/21 05:50 Carbon Dioxide 26.0 mmol/L (21.0-32.0) 02/13/21 05:50 Anion Gap 3 (5-15) L 02/13/21 05:50 BUN 9 mg/dL (7-18) 02/13/21 05:50 Creatinine 0.88 mg/dL (0.55-1.02) 02/13/21 05:50 Est GFR (MDRD) Af Amer 88 mL/min (>60) 02/13/21 05:50 Est GFR (MDRD) Non-Af 73 mL/min (>60) 02/13/21 05:50 BUN/Creatinine Ratio 10.2 RATIO (10-20) 02/13/21 05:50 Glucose 226 mg/dL (74-106) H 02/13/21 05:50 Vancomycin Trough 15.3 ug/mL (5.0-15.0) H 02/13/21 09:16 Goal Trough: 15-20 mcg/mL Pharmacy Plan for Drug Dosing: VANCOMYCIN LEVEL RECEIVED Current Vancomycin Dose: 2000mg IV q12h (,22) Number of Doses Received: 5 Vancomycin Level: 15.3 Hours Since Last Dose: 11.5 Renal Function: SrCr 0.88 Renal Function Trend: stable Lab/Micro: Vancomycin Plan/Comments: recommend continuing current dose due to trough resulting within ordered goal trough range of 15-20. Pending Level: 02/15/21 @ 0930 Pharmacy Service will continue to monitor and adjust dosing as required. Follow-Up Labs: Trough Vancomycin - 02/15/21 at 0930
--- NOTE | 2021-02-13 11:49 | DCINST_ITS ---
Discharge Instructions Diet Discharge Diet: 1999 Calorie Control Diet Activity Discharge Activity: - (activity as tolerated) Return to work on:: 02/17/21 Weight Bearing Status: Weight bearing as tolerated Keep extremity elevated above heart level: Left Leg Dressing / Incision Call your doctor if your incision/area has: Continuous Slow Oozing, Increased P ain/ Swelling, Increased Redness, Foul Smelling Discharge and Swelling at the incision site Call your doctor if you observe: Fever of 101 or Higher Follow Up Care Test Results: Test results from this visit will be discussed in further detail at your follow-up appointment, if applicable. Discharge Plan Admission Admit Date/Time: 02/11/21 12:09 Attending Provider: Romel Richards Primary Care Provider: Laly Schwab Discharge Orders/Prescriptions Prescriptions: New meclizine 25 mg Tablet 25 mg PO TID PRN PRN (Reason: Dizziness) Qty: 10 RF: 0 ondansetron 8 mg tablet,disintegrating 8 mg PO Q8H PRN (Reason: nausea and vomiting) Qty: 20 RF: 0 doxycycline hyclate 100 mg tablet 100 mg PO BID Qty: 10 RF: 0 ferrous sulfate 325 mg (65 mg iron) tablet 325 mg PO QODAY Qty: 20 RF: 0 acetaminophen 500 mg capsule 500 mg PO Q6H PRN (Reason: fever or pain) Qty: 1 RF: 0 ibuprofen 200 mg tablet 400 mg PO Q4H PRN (Reason: fever or pain) Qty: 1 RF: 0 Continued propranolol [Inderal LA] 160 MG capsule,extended release 24 hr 160 mg PO DAILY RF: 0 alprazolam 0.25 MG tablet 0.5 mg PO QHS PRN PRN (Reason: Insomnia) RF: 0 guaifenesin [Mucus Relief ER] 600 MG tablet 600 mg PO DAILY RF: 0 levothyroxine 88 MCG tablet 88 mcg PO DAILY RF: 0 levocetirizine [Xyzal] 5 MG tablet 5 mg PO DAILY RF: 0 lisinopril 20 MG tablet 20 mg PO DAILY RF: 0 duloxetine 30 mg capsule,delayed release(DR/EC) 30 mg PO DAILY RF: 0 Tresiba FlexTouch U-100 100 unit/mL (3 mL) insulin pen 20 unit SUBCUT DAILY RF: 0 Farxiga 10 mg tablet 10 mg PO DAILY RF: 0 Referrals / Follow Up: Laly Schwab DO [Primary Care Provider] - Within 1 Week Disposition Disposition (needs filled in before D/C Order can be placed): Home, Self Care
--- NOTE | 2021-02-13 11:59 | DS.PCM_ITS ---
Providers Date of Admission: 02/11/21 Primary Care Physician: Dr. Laly Schwab DO Reason For Visit: CELLULITIS Diagnosis Discharge Diagnosis (1) Cellulitis and abscess of left leg: Status: Acute Code(s): L03.116 - Cellulitis of left lower limb; L02.416 - Cutaneous abscess of left lower limb (2) Nausea and vomiting in adult: Status: Acute Code(s): R11.2 - Nausea with vomiting, unspecified Medications at Discharge Home Medications alprazolam 0.5 mg PO QHS PRN PRN 03/24/15 guaifenesin [Mucus Relief ER] 600 mg PO DAILY 03/24/15 propranolol [Inderal LA] 160 mg PO DAILY 03/24/15 levocetirizine [Xyzal] 5 mg PO DAILY 04/21/17 levothyroxine 88 mcg PO DAILY 04/21/17 lisinopril 20 mg PO DAILY 01/13/20 Farxiga 10 mg PO DAILY 02/11/21 Tresiba FlexTouch U-100 20 unit SUBCUT DAILY 02/11/21 duloxetine 30 mg PO DAILY 02/11/21 acetaminophen 500 mg PO Q6H PRN #1 cap 02/13/21 doxycycline hyclate 100 mg PO BID #10 tab 02/13/21 ferrous sulfate 325 mg PO QODAY #20 tab 02/13/21 ibuprofen 400 mg PO Q4H PRN #1 tab 02/13/21 meclizine 25 mg PO TID PRN PRN #10 tab 02/13/21 ondansetron 8 mg PO Q8H PRN #20 tab 02/13/21 Hospital Course Operations None Summary of Care Provided Minutes Spent on Discharge: 32 Hospital Course: 45-year-old female presents with left lower extremity celluli tis. Patient was started on vancomycin and cellulitis improved. Patient did have some residual swelling in her leg as redness improved and a duplex was performed today that was negative for DVT. Patient did experience migraine and nausea and vomiting. Patient did have MRI of her brain that showed no acute process. Today, patient is feeling much better. Physical Exam Const alert HEENT normocephalic Extremity Extremity Narrative: Nonpitting edema of the left lower extremity. Skin Skin Narrative: Resolving erythema of the left lower extremity. Weight / BMI Weight Weight: 105.2 kg Body Mass Index (BMI) 34.2 ABG / Lab / Microbiology Data Result Diagrams: 02/13/21 05:50 02/13/21 05:50 Laboratory: Laboratory Results - last 24 hr 02/12/21 02/12/21 02/12/21 05:22 11:29 16:31 WBC RBC Hgb Hct MCV MCH MCHC RDW Std Deviation RDW Coeff of Leanna Plt Count MPV Immature Gran % (Auto) Neut % (Auto) Lymph % (Auto) [place] % (Auto) Eos % (Auto) Baso % (Auto) Absolute Neuts (auto) Absolute Lymphs (auto) Nucleated RBC % Diff Path Review Reviewed Platelet Estimate Sodium Potassium Chloride Carbon Dioxide Anion Gap BUN Creatinine Estim Creat Clear Calc Est GFR (MDRD) Af Amer Est GFR (MDRD) Non-Af BUN/Creatinine Ratio Glucose Calcium Vancomycin Trough POC Glucose 275 H 233 H 02/12/21 02/13/21 02/13/21 22:51 05:50 05:50 WBC 2.4 L RBC 3.67 L Hgb 8.8 L Hct 30.1 L MCV 82.0 MCH 24.0 L MCHC 29.2 L RDW Std Deviation 43.3 RDW Coeff of Leanna 14.6 Plt Count 81 L MPV 10.6 Immature Gran % (Auto) 0.400 Neut % (Auto) 61.1 Lymph % (Auto) 21.7 [place] % (Auto) 12.3 H Eos % (Auto) 4.1 Baso % (Auto) 0.4 Absolute Neuts (auto) 1.5 L Absolute Lymphs (auto) 0.53 L Nucleated RBC % 0 Diff Path Review May foll Platelet Estimate MOD DEC Sodium 139 Potassium 3.7 Chloride 110 H Carbon Dioxide 26.0 Anion Gap 3 L BUN 9 Creatinine 0.88 Estim Creat Clear Calc 82.59 Est GFR (MDRD) Af Amer 88 Est GFR (MDRD) Non-Af 73 BUN/Creatinine Ratio 10.2 Glucose 226 H Calcium 8.3 L Vancomycin Trough POC Glucose 227 H 02/13/21 02/13/21 02/13/21 06:36 09:16 11:20 WBC RBC Hgb Hct MCV MCH MCHC RDW Std Deviation RDW Coeff of Leanna Plt Count MPV Immature Gran % (Auto) Neut % (Auto) Lymph % (Auto) [place] % (Auto) Eos % (Auto) Baso % (Auto) Absolute Neuts (auto) Absolute Lymphs (auto) Nucleated RBC % Diff Path Review Platelet Estimate Sodium Potassium Chloride Carbon Dioxide Anion Gap BUN Creatinine Estim Creat Clear Calc Est GFR (MDRD) Af Amer Est GFR (MDRD) Non-Af BUN/Creatinine Ratio Glucose Calcium Vancomycin Trough 15.3 H POC Glucose 228 H 272 H Radiography Diagnostic Testing: Radiology Impression Brain MRI 02/12/21 17:54 IMPRESSION: Negative MRI Brain without contrast. at 2148 Reported and signed by: Peter Sánchez MD Electronically Signed: Peter Sánchez MD at 21:47 EDT Tel , Service support , D/C Instructions Discharge Diet: 2000 Calorie Control Diet Return to work on: 02/17/21 Weight Bearing Status: Weight bearing as tolerated Keep extremity elevated above heart level: Left Leg Call your doctor if your incision/area has: Continuous Slow Oozing, Increased Pain/ Swelling, Increased Redness, Foul Smelling Discharge and Swelling at the incision site Call your doctor if you observe: Fever of 101 or Higher Meaningful Use Info Meaningful Use Diagnoses (Choose all that apply): None applicable Discharge Plan Admission Admit Date/Time: 02/11/21 12:09 Attending Provider: Romel Richards Primary Care Provider: Laly Schwab Discharge Orders/Prescriptions Prescriptions: New meclizine 25 mg Tablet 25 mg PO TID PRN PRN (Reason: Dizziness) Qty: 10 RF: 0 ondansetron 8 mg tablet,disintegrating 8 mg PO Q8H PRN (Reason: nausea and vomiting) Qty: 20 RF: 0 doxycycline hyclate 100 mg tablet 100 mg PO BID Qty: 10 RF: 0 ferrous sulfate 325 mg (65 mg iron) tablet 325 mg PO QODAY Qty: 20 RF: 0 acetaminophen 500 mg capsule 500 mg PO Q6H PRN (Reason: fever or pain) Qty: 1 RF: 0 ibuprofen 200 mg tablet 400 mg PO Q4H PRN (Reason: fever or pain) Qty: 1 RF: 0 Continued propranolol [Inderal LA] 160 MG capsule,extended release 24 hr 160 mg PO DAILY RF: 0 alprazolam 0.25 MG tablet 0.5 mg PO QHS PRN PRN (Reason: Insomnia) RF: 0 guaifenesin [Mucus Relief ER] 600 MG tablet 600 mg PO DAILY RF: 0 levothyroxine 88 MCG tablet 88 mcg PO DAILY RF: 0 levocetirizine [Xyzal] 5 MG tablet 5 mg PO DAILY RF: 0 lisinopril 20 MG tablet 20 mg PO DAILY RF: 0 duloxetine 30 mg capsule,delayed release(DR/EC) 30 mg PO DAILY RF: 0 Tresiba FlexTouch U-100 100 unit/mL (3 mL) insulin pen 20 unit SUBCUT DAILY RF: 0 Farxiga 10 mg tablet 10 mg PO DAILY RF: 0 Referrals / Follow Up: Laly Schwab DO [Primary Care Provider] - Within 1 Week Disposition Disposition (needs filled in before D/C Order can be placed): Home, Self Care Charges/Coding Visit Charges OBSV E&M: 02673 Observation care discharge
[2021-02-13 12:50] LABS: Pathologist Review Reviewed
[2021-02-13 13:36] VITALS: BP 143/77; PULSE 75; RESP 18; TEMP 36.6; O2SAT 98
== END 2021-02-13 13:45 | disposition home or self-care (01) ==
LOC: ED 11:39 → MS3 13:27
PROVIDERS: Emergency Provider Student in an Organized Health Care Education/Training Program; PCP Internal Medicine
DX: L02.416 Cutaneous abscess of left lower limb (principal); L03.116 Cellulitis of left lower limb; R11.2 Nausea with vomiting, unspecified; M25.562 Pain in left knee; E11.9 Type 2 diabetes mellitus without complications; I10 Essential (primary) hypertension; Z79.4 Long term (current) use of insulin; Z79.899 Other long term (current) drug therapy; G43.909 Migraine, unspecified, not intractable, without status migrainosus; Z91.81 History of falling
CPT/HCPCS: 36415; 70551; 73564; 80048; 80053; 80202; 81001; 82728; 82962; 83540; 83550; 85025; 87640; 93971; 96361; 96365; 96366; 96375; 96376; 97161; 97530; 99218; 99251; 99285; J7030; J7040; A4216; G0378; G0463; J2405

== ENCOUNTER 2021-04-28 11:09 | Emergency (ER) | payer OTHER, SELFPAY ==
[2021-04-28 11:10] VITALS: BP 129/87; PULSE 72; RESP 20; TEMP 36.7; O2SAT 99; BMI 32.5
--- NOTE | 2021-04-28 11:35 | RAD_ITS ---
STUDY: X-RAY - RIGHT HAND REASON FOR EXAM: Female, 46 years old. Dog bite infection TECHNIQUE: 3 view(s) of the hand. COMPARISON: None. FINDINGS: Normal radiocarpal articulation. Normal distal radioulnar joint. Normal visualized carpal bones. Normal carpal articulations Normal carpometacarpal articulation of the thumb. Normal second through fifth carpometacarpal joints. Normal metacarpi. Normal metacarpophalangeal joint of the thumb. Normal interphalangeal joint of the thumb. Normal proximal and distal phalanges of the thumb. Normal metacarpophalangeal joints of the second through fifth fingers. Normal proximal and distal interphalangeal joints of the second through fifth fingers. Normal phalanges of the second through fifth fingers. Diffuse soft tissue swelling. No radiopaque foreign body is seen. RAD/Hand Min 3 Views IMPRESSION: Diffuse soft tissue swelling. No radiopaque foreign body is seen. Electronically Signed: Joshua Garza MD at 13:31 EDT , Service support ,
--- NOTE | 2021-04-28 11:37 | EDS_ITS ---
HPI History of Present Illness Chief Complaint: Cellulitis Informant: patient Narrative Narrative: 46-year-old female states that on Wednesday she was bit by her dog and the right hand. She states it did not really bother her then. Yesterday she developed some swelling and redness of the hand. The puncture sites continue to ooze. She took 2 doses of the left and her antibiotic yesterday. She does not know what that was. Today she notes more swelling and redness up onto the forearm. She notes chills yesterday but no fevers. Last tetanus she reports is being last year. [facility] Medical History Diabetes Hypertension Migraines Home Medications alprazolam 0.5 mg PO QHS PRN PRN 03/24/15 [History Last Taken Unknown] guaifenesin [Mucus Relief ER] 600 mg PO DAILY 03/24/15 [History Last Taken Unknown] propranolol [Inderal LA] 160 mg PO DAILY 03/24/15 [History Last Taken 04/27/17 09:00 160 MG] levocetirizine [Xyzal] 5 mg PO DAILY 04/21/17 [History Last Taken Unknown] levothyroxine 88 mcg PO DAILY 04/21/17 [History Last Taken Unknown] lisinopril 20 mg PO DAILY 01/13/20 [History Last Taken Unknown] Farxiga 10 mg PO DAILY 02/11/21 [History Last Taken Unknown] Tresiba FlexTouch U-100 20 unit SUBCUT DAILY 02/11/21 [History Last Taken Unknown] duloxetine 30 mg PO DAILY 02/11/21 [History Last Taken Unknown] acetaminophen 500 mg PO Q6H PRN #1 cap 02/13/21 [Rx Last Taken Unknown] doxycycline hyclate 100 mg PO BID #10 tab 02/13/21 [Rx Last Taken Unknown] ferrous sulfate 325 mg PO QODAY #20 tab 02/13/21 [Rx Last Taken Unknown] ibuprofen 400 mg PO Q4H PRN #1 tab 02/13/21 [Rx Last Taken Unknown] meclizine 25 mg PO TID PRN PRN #10 tab 02/13/21 [Rx Last Taken Unknown] ondansetron 8 mg PO Q8H PRN #20 tab 02/13/21 [Rx Last Taken Unknown] cefuroxime axetil 500 mg PO Q12H 10 Days #20 tab 04/28/21 [Rx Last Taken Unknown] hydrocodone-acetaminophen 1 tab PO Q6H PRN PRN 3 Days #12 tablet 04/28/21 [Rx Last Taken Unknown] metronidazole 500 mg PO TID #30 tab 04/28/21 [Rx Last Taken Unknown] Allergy/AdvReac Type Severity Reaction Status Date / Time amoxicillin [Amoxicillin] Allergy Other Verified 02/11/21 09:43 Penicillins Allergy Swelling Verified 02/11/21 09:43 hydromorphone HCl AdvReac Vomiting Verified 02/11/21 09:43 [From Dilaudid] Sulfa (Sulfonamide AdvReac Vomiting Verified 02/11/21 09:43 Antibiotics) Family History Other Diabetes Surgical History History of cholecystectomy Social History Smoking Status: Never smoker alcohol intake: current details: 1 drink/week substance use type: does not use ROS ROS ED Constitutional Constitutional ED: Denies chills or weight loss Eyes Eyes: Denies change in vision or diplopia ENT ENT ED: Denies ear pain, rhinorrhea or sore throat Cardiovascular Cardiovascular: Denies chest pain, orthopnea, palpitations or racing heartbeat Respiratory/Chest Respiratory/Chest: Denies cough, dyspnea or orthopnea Gastrointestinal Gastrointestinal: Denies abdominal pain, diarrhea, nausea or vomiting Genitourinary Genitourinary ED: Denies dysuria, hematuria or urinary frequency Musculoskeletal Musculoskeletal: Reports other Details: Right hand swelling ; Denies arthralgias or myalgias Integumentary Reports rash; Denies abscess Neurologic Neurologic: Denies headache(s) or weakness Psychiatric Psychiatric: Denies anxiety, depression, suicidal ideation or suicidal thoughts Endocrine Endocrinology: Denies polydipsia, polyphagia or polyuria Allergic/Immunologic Allergic/Immunologic ED: Denies mouth swelling, tongue swelling or urticaria EXAM Physical Exam Const Vital Signs: 04/28/21 11:10 04/28/21 12:40 Temperature 98.0 F 97.8 F Temperature Source Temporal Temporal Pulse Rate 72 72 Respiratory Rate 20 H 18 Blood Pressure 129/87 H 129/87 H Blood Pressure Mean 101 101 Pulse Ox 99 98 Oxygen Delivery Method Room Air Room Air Positive well nourished and well developed General Appearance ED: well developed; Negative for pallor HEENT Reports normocephalic, head/scalp atraumatic and moist mucous membranes Eyes PERRL and EOMs intact bilaterally Neck no lymphadenopathy, supple and no JVD Resp normal respiratory effort and clear to auscultation bilaterally Cardio regular rate, regular rhythm and no murmurs GI normal to inspection, nondistended, normoactive bowel sounds and non-tender Palpation: soft Back/Spine no CVA tenderness and normal ROM Extremity Extremity Narrative: Right hand is swollen and tender. There is mild erythema. The distal fingertips are not swollen or erythematous. There are 2 puncture sites over the lateral dorsum of the hand. There is some mild erythema over the anterior aspect of the forearm. I do not appreciate any evidence of tenosynovitis. General Extremety ED: Yes edema General Extremity: edema Neuro oriented x3 and CN's II-XII intact bilaterally Sensorium / Orientation: alert Motor Exam: strength 5/5 throughout Psych mental status grossly normal Mood & Affect: Negative for depressed or tearful Skin Skin Narrative: See extremity exam General Skin Exam: elasticity normal; Negative for jaundice or pallor MDM MDM MDM Narrative Medical decision making narrative: Patient has no fever. White count 6.4. Lactic acid 1.8. Blood cultures were obtained as well as wound culture. Patient received ceftriaxone and Flagyl because of penicillin allergy. Patient at this time we are going to try appropriate antibiotics at home. She was advised on follow-up and return instructions. She was advised that symptoms may worsen and she will need to be hospitalized and potentially even surgery. She understands this. Lab Data Attestation: I reviewed the patient's lab results. Labs: Laboratory Results - last 24 hr 04/28/21 04/28/21 04/28/21 12:30 12:30 12:30 WBC 6.4 RBC 4.07 L Hgb 10.2 L Hct 32.5 L MCV 79.9 L MCH 25.1 L MCHC 31.4 L RDW Std Deviation 42.4 RDW Coeff of Leanna 14.6 Plt Count 110 L MPV 10.4 Immature Gran % (Auto) 0.300 Neut % (Auto) 73.2 H Lymph % (Auto) 17.0 L Morrison % (Auto) 7.5 Eos % (Auto) 1.7 Baso % (Auto) 0.3 Absolute Neuts (auto) 4.7 Absolute Lymphs (auto) 1.08 Nucleated RBC % 0 Sodium 136 Potassium 3.5 Chloride 105 Carbon Dioxide 24.0 Anion Gap 7 BUN 10 Creatinine 0.64 Estim Creat Clear Calc 112.34 Est GFR (MDRD) Af Amer 127 Est GFR (MDRD) Non-Af 105 BUN/Creatinine Ratio 15.6 Glucose 170 H Lactic Acid 1.8 Calcium 8.5 Total Bilirubin 0.50 AST 12 L ALT 19 Alkaline Phosphatase 69 Total Protein 7.3 Albumin 3.6 Globulin 3.7 Albumin/Globulin Ratio 1.0 Radiography Diagnostic Testing: Radiology Impression Hand X-Ray 04/28/21 11:35 IMPRESSION: Diffuse soft tissue swelling. No radiopaque foreign body is seen. Electronically Signed: Joshua Garza MD at 13:31 EDT , Service support , Discharge Plan Triage Chief Complaint: Cellulitis ED Provider: Liu Frederick Dx/Rx/DC Orders Clinical Impression: Dog bite of hand, Cellulitis of hand, right Instructions: ED Dog Bite Prescriptions: New cefuroxime axetil 500 mg tablet 500 mg PO Q12H 10 Days Qty: 20 RF: 0 metronidazole 500 mg tablet 500 mg PO TID Qty: 30 RF: 0 hydrocodone-acetaminophen [hydrocodone-acetaminophen] 1 TABLET tablet 1 tab PO Q6H PRN PRN (Reason: Pain) 3 Days Qty: 12 RF: 0 No Action propranolol [Inderal LA] 160 MG capsule,extended release 24 hr 160 mg PO DAILY RF: 0 alprazolam 0.25 MG tablet 0.5 mg PO QHS PRN PRN (Reason: Insomnia) RF: 0 guaifenesin [Mucus Relief ER] 600 MG tablet 600 mg PO DAILY RF: 0 levothyroxine 88 MCG tablet 88 mcg PO DAILY RF: 0 levocetirizine [Xyzal] 5 MG tablet 5 mg PO DAILY RF: 0 lisinopril 20 MG tablet 20 mg PO DAILY RF: 0 duloxetine 30 mg capsule,delayed release(DR/EC) 30 mg PO DAILY RF: 0 Tresiba FlexTouch U-100 100 unit/mL (3 mL) insulin pen 20 unit SUBCUT DAILY RF: 0 Farxiga 10 mg tablet 10 mg PO DAILY RF: 0 meclizine 25 mg Tablet 25 mg PO TID PRN PRN (Reason: Dizziness) Qty: 10 RF: 0 ondansetron 8 mg tablet,disintegrating 8 mg PO Q8H PRN (Reason: nausea and vomiting) Qty: 20 RF: 0 doxycycline hyclate 100 mg tablet 100 mg PO BID Qty: 10 RF: 0 ferrous sulfate 325 mg (65 mg iron) tablet 325 mg PO QODAY Qty: 20 RF: 0 acetaminophen 500 mg capsule 500 mg PO Q6H PRN (Reason: fever or pain) Qty: 1 RF: 0 ibuprofen 200 mg tablet 400 mg PO Q4H PRN (Reason: fever or pain) Qty: 1 RF: 0 Primary Care Provider: Laly Schwab Referrals: Laly Schwab DO [Primary Care Provider] - Activity Restrictions/Additional Instructions: Please call [phone] to arrange follow-up with a hand surgeon at [facility]. If you are worsening or have any concerns please return to emergency department. Disposition Disposition: Home, Self Care
[2021-04-28 12:40] VITALS: BP 129/87; PULSE 72; RESP 18; TEMP 36.6; O2SAT 98
[2021-04-28 12:45] LABS: Absolute Lymphocyte Count 1.08 X10^3/uL (0.83-4.51); Absolute Neutrophil Count 4.7 X10^3/uL (2.0-7.7); Basophil# 0.02 X10^3/uL; Basophil% 0.3 % (0-1); Eosinophil# 0.11 X10^3/uL; Eosinophils% 1.7 % (0-5); Hematocrit 32.5 % (37-47); Hemoglobin 10.2 g/dL (12.0-15.0); Lymphocyte # 1.08 X10^3/ul (0.83-4.51); Mean Corp Hgb Conc 31.4 g/dL (32-36); Mean Corpuscular Hgb 25.1 pg (27.0-32.0); Mean Corpuscular Volume 79.9 fL (81-99); Mean Platelet Vol. 10.4 fl (6.2-12.0); Monocyte# 0.48 X10^3/uL; Monocyte% 7.5 % (0-10); NRBC Flagged by Analyzer 0 % (0-5); Neutrophil # 4.65 X10^3/uL (2.7-7.7); Neutrophil % 73.2 % (47-70); Platelet Count 110 K/mm3 (150-450); RBC Distribution Width CV 14.6 % (11.6-14.6); RBC Distribution Width SD 42.4 fl (35.1-43.9); Red Blood Count 4.07 M/mm3 (4.2-5.4); White Blood Count 6.4 K/mm3 (4.4-11.0)
--- NOTE | 2021-04-28 12:45 | ED.RN ---
pt refusing to file dog bite form.
[2021-04-28 12:59] LABS: AST(SGOT) 12 U/L (15-37); Alanine Aminotransfer ALT/SGPT 19 U/L (13-56); Albumin, Serum 3.6 g/dL (3.2-5.0); Alkaline Phosphatase 69 U/L (45-117); Anion Gap 7 (5-15); BUN 10 mg/dL (7-18); BUN/Creat Ratio 15.6 RATIO (10-20); Calcium,Total 8.5 mg/dL (8.5-10.1); Chloride 105 mmol/L (98-107); Creatinine, Serum 0.64 mg/dL (0.55-1.02); EST Glomerular Filtration Rate 105 mL/min (>60); Est Glom Filt Rate - Afr Amer 127 mL/min (>60); Estimated Creatinine Clearance 112.34 ml/min; Globulin 3.7 g/dL (2.2-4.2); Glucose 170 mg/dL (74-106); Potassium 3.5 mmol/L (3.5-5.1); Protein, Total 7.3 g/dL (6.4-8.2); Sodium Level 136 mmol/L (136-145)
[2021-04-28 13:05] LABS: Lactic Acid 1.8 mmol/L (0.4-1.9)
[2021-04-28] MEDS: Ceftriaxone 1 GM/50 ML BAG IV (13:41)
[2021-04-28] MEDS: metroNIDAZOLE 500 MG/100 ML BAG 100 MG IV (15:10)
[2021-04-28] MEDS: HYDROcodone Bitartrate/Apap 5/325 Tablet PO (15:10)
[2021-04-28 16:25] VITALS: BP 130/69; PULSE 88; RESP 18; O2SAT 97
== END 2021-04-28 16:29 | disposition home or self-care (01) ==
PROVIDERS: Emergency Provider Emergency Medicine; PCP Internal Medicine
DX: S60.571A Other superficial bite of hand of right hand, initial encounter (principal); L03.113 Cellulitis of right upper limb; W54.0XXA Bitten by dog, initial encounter; Y93.9 Activity, unspecified; Y92.9 Unspecified place or not applicable; I10 Essential (primary) hypertension; E11.9 Type 2 diabetes mellitus without complications; G43.909 Migraine, unspecified, not intractable, without status migrainosus; Z79.4 Long term (current) use of insulin; Z79.899 Other long term (current) drug therapy
CPT/HCPCS: 73130; 80053; 83605; 85025; 87040; 87070; 87077; 87186; 87205; 96365; 96366; 96368; 99285; J7030; A4216

== ENCOUNTER 2021-09-29 11:07 | Outpatient (CLI) | payer OTHER, SELFPAY ==
[2021-09-29 11:25] LABS: Absolute Lymphocyte Count 1.02 X10^3/uL (0.83-4.51); Absolute Neutrophil Count 2.6 X10^3/uL (2.0-7.7); Basophil# 0.03 X10^3/uL; Basophil% 0.7 % (0-1); Eosinophil# 0.13 X10^3/uL; Eosinophils% 3.1 % (0-5); Hematocrit 32.9 % (37-47); Hemoglobin 10.3 g/dL (12.0-15.0); Lymphocyte # 1.02 X10^3/ul (0.83-4.51); Lymphocyte % 24.6 % (19-41); Mean Corp Hgb Conc 31.3 g/dL (32-36); Mean Corpuscular Hgb 23.6 pg (27.0-32.0); Mean Corpuscular Volume 75.5 fL (81-99); Mean Platelet Vol. 9.9 fl (6.2-12.0); Monocyte# 0.33 X10^3/uL; NRBC Flagged by Analyzer 0 % (0-5); Neutrophil # 2.62 X10^3/uL (2.7-7.7); Neutrophil % 63.4 % (47-70); Platelet Count 119 K/mm3 (150-450); RBC Distribution Width CV 15.1 % (11.6-14.6); RBC Distribution Width SD 41.4 fl (35.1-43.9); Red Blood Count 4.36 M/mm3 (4.2-5.4); White Blood Count 4.1 K/mm3 (4.4-11.0)
[2021-09-29 11:46] LABS: ALB/GLOB Ratio 1.1 RATIO (0.9-2.4); AST(SGOT) 12 U/L (15-37); Alanine Aminotransfer ALT/SGPT 20 U/L (13-56); Albumin, Serum 3.7 g/dL (3.2-5.0); Alkaline Phosphatase 71 U/L (45-117); Anion Gap 6 (5-15); BUN 12 mg/dL (7-18); BUN/Creat Ratio 16.4 RATIO (10-20); CPK Total, Creatine Kinase 48 U/L (26-192); Calcium,Total 8.4 mg/dL (8.5-10.1); Chloride 103 mmol/L (98-107); Creatinine, Serum 0.73 mg/dL (0.55-1.02); EST Glomerular Filtration Rate 90 mL/min (>60); Est Glom Filt Rate - Afr Amer 109 mL/min (>60); Globulin 3.4 g/dL (2.2-4.2); Glucose 195 mg/dL (74-106); Potassium 3.8 mmol/L (3.5-5.1); Protein, Total 7.1 g/dL (6.4-8.2); Sodium Level 139 mmol/L (136-145); Troponin-I HS 5 pg/mL (3.0-54.0)
[2021-09-30 14:13] LABS: Myoglobin, Serum < 21 ng/mL (25-58)
== END 2021-09-29 23:59 | disposition home or self-care (01) ==
LOC: LABSPEC 11:08
PROVIDERS: PCP Internal Medicine; Visit Provider Nurse Practitioner
DX: R07.9 Chest pain, unspecified (principal)
CPT/HCPCS: 80053; 82550; 83874; 84443; 84484; 85025

== ENCOUNTER → 2022-11-12 | Outpatient (CLI) | payer BC, SELFPAY ==
[2022-11-19 13:02] LABS: HPV APTIMA, High Risk Negative (Negative)
== END | disposition home or self-care (01) ==
PROVIDERS: PCP Internal Medicine; Visit Provider Nurse Practitioner Women's Health
DX: Z12.4 Encounter for screening for malignant neoplasm of cervix (principal)
CPT/HCPCS: 87624; 88175; G0145

== ENCOUNTER → 2023-01-28 | Outpatient (CLI) | payer BC, SELFPAY ==
--- NOTE | 2023-01-28 08:02 | BI_ITS ---
MAMMOGRAPHY - BILATERAL SCREENING REASON FOR EXAM: Female, 47 years old. Routine annual screening examination. PERTINENT HISTORY: Non-contributory. TECHNIQUE: Digital bilateral breast amy (3D mammographic acquisition) in the CC and MLO projections. 2-D mediolateral oblique (MLO) and craniocaudad (CC) views of both breasts were obtained. CAD: Full Field Digital Mammography with Computer Added Detection was performed. COMPARISON: Mammogram from 11/25/2018, 10/19/2016. Right breast ultrasound from 12/02/2018. FINDINGS: Breast Composition: There are scattered areas of fibroglandular density. There is a 0.8 x 0.9 cm well-circumscribed oval mass in the right slightly lower outer breast, which was previously characterized as a benign cyst on ultrasound and previously measured 1.9 x 1.5 cm, compatible with resolving cyst. The additional cyst in the right slightly upper outer breast has resolved. No new suspicious masses or suspicious calcifications. No other significant abnormalities are identified. BI/SCRN MAMM (CAD)W/AMY BILAT IMPRESSION: Negative screening mammogram. Yearly followup mammogram recommended. (A) ASSESSMENT CATEGORY: BIRADS Category 2: Benign. A letter regarding these results will be sent to the patient by the facility within 30 days. Approximately 10% of breast cancers are not detected by mammography. A normal mammogram should not delay biopsy of a clinically suspicious abnormality. Electronically Signed: Nigel Hoffmann DO at 16:08 EDT ,
== END | disposition home or self-care (01) ==
LOC: OPBI 08:00
PROVIDERS: PCP Internal Medicine; Referring Provider Obstetrics & Gynecology; Visit Provider Obstetrics & Gynecology
DX: Z12.31 Encounter for screening mammogram for malignant neoplasm of breast (principal)
CPT/HCPCS: 77063; 77067

== ENCOUNTER → 2023-05-07 | Outpatient (CLI) | payer BC, SELFPAY ==
--- NOTE | 2023-05-07 06:25 | ECHOD_ITS ---
Reason For Study: CHEST DISCOMFORT Procedure This was a 2D Doppler, Color Flow transthoracic echocardiogram. Exam performed in department. Left Ventricle Normal LV size. Mild concentric left ventricular hypertrophy. Apical false tendon versus noncompaction. The left ventricular ejection fraction is 65 %. Normal diastology for age. Right Ventricle Normal right ventricle. Atria The left and right atria are normal. Mitral Valve Trivial mitral valve insufficiency. Tricuspid Valve Trivial tricuspid valve insufficiency. Unable to estimate RV systolic pressure due to insufficient tricuspid regurgitant envelope. Aortic Valve Trisinus/trileaflet aortic valve. Pulmonic Valve The pulmonic valve is not well visualized. Great Vessels Mildly dilated aortic root. Pericardium/Pleural No pericardial effusion. MMode/2D Measurements & Calculations LVIDd: 4.4 cm IVSd: 1.2 cm Ao root diam: 3.6 cm LVIDs: 2.8 cm LVPWd: 1.3 cm FS: 36.6 % LAV(MOD-bp): 69.7 ml LVAd ap4: 25.1 cm2 SV(MOD-sp4): 38.6 ml LAV(MOD-bp) Indexed: 30.8 ml/m2 LVLd ap4: 7.5 cm LAV(MOD-sp2): 60.1 ml EDV(MOD-sp4): 72.0 ml LAV(MOD-sp4): 66.7 ml EDV(sp4-el): 70.8 ml LVAs ap4: 14.8 cm2 LVLs ap4: 6.0 cm ESV(MOD-sp4): 33.4 ml ESV(sp4-el): 31.2 ml EF(MOD-sp4): 53.6 % EF(sp4-el): 56.0 % SV(sp4-el): 39.6 ml LA A4 area: 23.3 cm2 LA dimension(2D): 3.8 cm RA A4 area: 14.4 cm2 TAPSE: 2.8 cm Time Measurements MV dec time: 0.21 sec Doppler Measurements & Calculations MV E max fantasma: 84.4 cm/sec Lat Peak E' Fantasma: 14.0 cm/sec Med Peak E' Fantasma: 9.2 cm/sec MV A max fantasma: 54.2 cm/sec E/E' lat: 6.0 E/E' med: 9.2 MV E/A: 1.6 MV V2 max: 95.7 cm/sec Ao V2 max: 165.8 cm/sec MV max P.7 mmHg MV dec slope: 399.6 cm/sec2 Ao max P.0 mmHg MV V2 mean: 49.5 cm/sec Ao V2 mean: 116.2 cm/sec MV mean P.2 mmHg Ao mean P.1 mmHg MV V2 VTI: 29.3 cm Ao V2 VTI: 40.0 cm AV (velocity ratio): 0.85 LV V1 max: 128.4 cm/sec MR max fantasma: 439.2 cm/sec PA V2 max: 86.1 cm/sec LV V1 max P.6 mmHg MR max P.2 mmHg PA V2 mean: 64.1 cm/sec LV V1 mean P.2 mmHg LV V1 mean: 97.8 cm/sec LV V1 VTI: 34.0 cm ECHO/Echo Complete Interpretation Summary Mild concentric left ventricular hypertrophy. The left ventricular ejection fraction is 65 %. LV apical false tendon versus noncompaction. Recommend cardiac MRI for further evaluation. Ordering Physician: Laly Schwab Referring Physician: Laly Schwab Performed By: Eli Smalls RCS
--- NOTE | 2023-05-07 12:53 | STRESSREP_ITS ---
Stress Test Report Date: 05/07/2023 Procedure: Exercise tolerance test/imaging study Indications: Dyspnea Consent: Per the patient Procedure: The patient exercised on a Chan protocol for 5 minutes achieving a peak heart rate of 110 bpm (64% predicted maximal heart rate) with a peak blood pressure 200/99 mmHg and a peak MET capacity of 7.0 METs. The baseline ECG demonstrated sinus rhythm with nonspecific ST T changes. The peak exercise ECG demonstrated [address] changes in inferior and lateral leads. There were no cardiac dysrhythmias pretest, during exercise, or recovery. The functional capacity was considered suboptimal. There was no complaints of chest discomfort during exercise or recovery. However she did complain of shortness of breath and fatigue with exercise. The examination was discontinued secondary to fatigue and leg discomfort. The patient was injected with 14.9 mCi of technetium 99m Cardiolite and sub sequently rest SPECT Cardiolite nuclear imaging was obtained in the horizontal long, vertical long, and short axis views. Post-exercise, the patient was injected with 44.7 mCi of technetium 99m Cardiolite and subsequently stress SPECT Cardiolite nuclear imaging was obtained in the horizontal long, vertical long, and short axis views. A gated Cardiolite study at peak stress was obtained. Rest and stress SPECT Cardiolite nuclear imaging status post realignment, normalization, and attenuation correction, demonstrates the appearance of relative uniform tracer uptake and myocardial perfusion appearing within normal limits. There is end systolic thickening and brightening. The gated Cardiolite study demonstrates myocardial thickening and inward wall motion. The reported LVEF is 76%. Impression: 1. Suboptimal exercise stress test with failure to achieve target heart rate. 2. Peak exercise ECG with [address] changes suggestive of ischemia however please note that baseline nonspecific ST?T wave changes reduce specificity. 3. There were no cardiac dysrhythmias pretest, during exercise, or recovery 4. Rest and stress SPECT Cardiolite nuclear imaging demonstrate no fixed or reversible perfusion defects. 5. The gated Cardiolite study reports an LVEF of 76%. This note was generated with 2thelooation software. It may contain incorrect words, spelling, and punctuation that were not noted in checking the note before signing.
== END | disposition home or self-care (01) ==
PROVIDERS: PCP Internal Medicine; Referring Provider Internal Medicine; Visit Provider Internal Medicine
DX: R07.89 Other chest pain (principal)
CPT/HCPCS: 78452; 93017; 93306; A9500; A4216

== ENCOUNTER → 2023-09-10 | Outpatient (CLI) | payer OTHER, SELFPAY ==
--- NOTE | 2023-09-10 08:45 | RDU_ITS ---
Reason For Study: Hypertension Right Renal Artery Left Renal Artery Right renal artery ostium Left renal artery ostium 68.3/13 110.7/30.3 RSV/EDV. PSV/EDV. Right renal artery proximal Left renal artery proximal PSV/EDV 121.6/32.1 PSV/EDV. 65.8/16.7 . Right renal artery mid 132.6/32.1 Left renal artery mid 79.3/16.7 PSV/EDV. PSV/EDV . Right renal artery distal 141/36.5 Left renal artery distal 89.1/23.9 PSV/EDV. PSV/EDV. Right Renal Parenchyma Left Renal Parenchyma Upper Pole Medula 38.4/11.4 Left upper pole medulla 23.6/4.9 PSV/EDV. PSV/EDV . Right upper pole medulla EDR 0.3 . Left upper pole medulla EDR 0.2 . Right upper pole medulla R.I. Left upper pole medulla R.I. 0.79 . 0.70 . UP Cortex 17.5/5.4 PSV/EDV. Upper Juan Miguel Cortx 18.2/5 PSV/EDV. Left upper pole cortex EDR 0.3 . Right upper pole cortex EDR 0.3 . Left upper pole cortex R.I. 0.69 . Right upper pole cortex R.I. 0.73 . Left lower Pole medulla 24.1/7.6 Right lower Pole medulla 30.5/9.3 PSV/EDV . PSV/EDV . Left lower pole medulla EDR 0.3 . Right lower pole medulla EDR 0.3 . Left lower pole medulla R.I. 0.68 . Right lower pole medulla R.I. Lower Pole Cortx 16.4/6 PSV/EDV. 0.70 . Left lower pole cortex EDR 0.4 . Lower Pole Cortex 15.4/5.5 PSV/EDV. Left lower pole cortex R.I. 0.64 . Right lower pole cortex EDR 0.4 . Left Renal Hilar Right lower pole cortex R.I. 0.64 . LT Hilar avg 53/11.5 PSV/EDV . Right Renal Hilar Left hilar acceleration time 70 Right Hilar avg 55.9/11.8 PSV/EDV. m/sec. Right hilar acceleration time 30 Left Renal Dimensions m/sec. Left kidney size 11.66 cm . Right Renal Dimensions Left cortical dimension 1.68 cm . Right kidney size 11.25 cm . Right cortical dimension 1.47 cm . Aorta Proximal abdominal aorta 1.65 x 1.65 cm . Proximal abdominal aorta peak systolic velocity is 116.2 cm/sec . Distal abdominal aorta 1.41 x 1.43 cm . Distal abdominal aorta peak systolic velocity is 125.3 cm/sec . VL/Renal Artery Duplex Ultrasound Interpretation Summary Right renal artery patent with normal velocities and no evidence of stenosis Left renal artery patent with normal velocities and no evidence of stenosis Right renal vein patent Left renal vein patent Right kidney normal in size Left kidney normal in size Ordering Physician: Laly Schwab Referring Physician: Laly Schwab Performed By: Yolande Quiñonez RVT
[2023-09-10 09:14] LABS: Absolute Lymphocyte Count 1.31 X10^3/uL (0.83-4.51); Basophil# 0.03 X10^3/uL; Basophil% 0.8 % (0-1); Eosinophil# 0.08 X10^3/uL; Eosinophils% 2.2 % (0-5); Hematocrit 33.5 % (37-47); Hemoglobin 10.2 g/dL (12.0-15.0); Lymphocyte # 1.31 X10^3/ul (0.83-4.51); Lymphocyte % 35.6 % (19-41); Mean Corp Hgb Conc 30.4 g/dL (32-36); Mean Corpuscular Hgb 24.3 pg (27.0-32.0); Mean Platelet Vol. 8.8 fl (6.2-12.0); Monocyte# 0.28 X10^3/uL; Monocyte% 7.6 % (0-10); NRBC Flagged by Analyzer 0 % (0-5); Neutrophil # 1.98 X10^3/uL (2.7-7.7); Neutrophil % 53.8 % (47-70); Platelet Count 107 K/mm3 (150-450); RBC Distribution Width CV 13.8 % (11.6-14.6); RBC Distribution Width SD 39.7 fl (35.1-43.9); Red Blood Count 4.19 M/mm3 (4.2-5.4); White Blood Count 3.7 K/mm3 (4.4-11.0)
[2023-09-10 09:26] LABS: Prothrombin Time (Protime)PT. 13.3 SECONDS (11.7-14.9)
[2023-09-10 09:27] LABS: Partial Thromboplast Time 31.9 Seconds (24.1-36.2)
[2023-09-10 09:57] LABS: ALB/GLOB Ratio 1.1 RATIO (0.9-2.4); AST(SGOT) 10 U/L (15-37); Alanine Aminotransfer ALT/SGPT 22 U/L (13-56); Albumin, Serum 3.5 g/dL (3.2-5.0); Alkaline Phosphatase 79 U/L (45-117); Anion Gap 3 (5-15); BUN 11 mg/dL (7-18); BUN/Creat Ratio 16.4 RATIO (10-20); Calcium,Total 8.6 mg/dL (8.5-10.1); Chloride 107 mmol/L (98-107); Creatinine, Serum 0.67 mg/dL (0.55-1.02); EST Glomerular Filtration Rate 99 mL/min (>60); Est Glom Filt Rate - Afr Amer 119 mL/min (>60); Globulin 3.2 g/dL (2.2-4.2); Glucose 207 mg/dL (74-106); Potassium 3.7 mmol/L (3.5-5.1); Protein, Total 6.7 g/dL (6.4-8.2); Sodium Level 139 mmol/L (136-145); Thyroid Stim Hormone (TSH) 1.86 uIU/mL (0.358-3.74)
[2023-09-10 10:03] LABS: Cholesterol 148 mg/dL (200); High Density Lipoprotein 48 mg/dL; Triglycerides 83 mg/dL; Very Low Density Lipoprotein 17 mg/dL (5-40)
== END | disposition home or self-care (01) ==
PROVIDERS: Internal Medicine Cardiovascular Disease; PCP Internal Medicine; Referring Provider Internal Medicine; Visit Provider Internal Medicine
DX: I10 Essential (primary) hypertension (principal); I20.9 Angina pectoris, unspecified; E07.9 Disorder of thyroid, unspecified; E78.00 Pure hypercholesterolemia, unspecified; R60.0 Localized edema; R93.1 Abnormal findings on diagnostic imaging of heart and coronary circulation; R06.09 Other forms of dyspnea; R53.83 Other fatigue
CPT/HCPCS: 36415; 80053; 80061; 84443; 85025; 85610; 85730; 93975

== ENCOUNTER → 2024-01-31 | Outpatient (CLI) | payer OTHER, SELFPAY ==
--- NOTE | 2024-01-31 07:21 | BI_ITS ---
MAMMOGRAPHY - BILATERAL SCREENING REASON FOR EXAM: Female, 48 years old. Routine annual screening examination. PERTINENT HISTORY: Non-contributory. TECHNIQUE: Digital bilateral breast amy (3D mammographic acquisition) in the CC and MLO projections. 2-D mediolateral oblique (MLO) and craniocaudad (CC) views of both breasts were obtained. CAD: Full Field Digital Mammography with Computer Added Detection was performed. COMPARISON: Comparison is made with prior study dated January 28, 2023 and November 25, 2018. FINDINGS: Breast Composition: There are scattered areas of fibroglandular density. There are no dominant masses or suspicious calcifications. Stable 5 mm well-circumscribed nodule in the lower outer quadrant of the right breast. No other significant abnormalities are identified. There has been no significant change since the prior study. BI/SCRN MAMM (CAD)W/AMY BILAT IMPRESSION: Stable bilateral screening mammogram. Yearly follow-up mammogram recommended. (A) ASSESSMENT CATEGORY: BIRADS Category 2: Benign. A letter regarding these results will be sent to the patient by the facility within 30 days. Approximately 10% of breast cancers are not detected by mammography. A normal mammogram should not delay biopsy of a clinically suspicious abnormality. [id number] Electronically Signed: Joshua Garza MD at 8:37 EDT ,
== END | disposition home or self-care (01) ==
LOC: OPBI 07:21
PROVIDERS: PCP Internal Medicine; Referring Provider Internal Medicine Hematology & Oncology; Visit Provider Internal Medicine Hematology & Oncology
DX: Z12.31 Encounter for screening mammogram for malignant neoplasm of breast (principal)
CPT/HCPCS: 77063; 77067

== ENCOUNTER → 2025-01-02 | Outpatient (CLI) | payer OTHER, SELFPAY ==
[2025-01-02 18:02] LABS: Absolute Lymphocyte Count 0.92 X10^3/uL (0.83-4.51); Absolute Neutrophil Count 2.6 X10^3/uL (2.0-7.7); Basophil# 0.03 X10^3/uL; Basophil% 0.7 % (0-1); Eosinophil# 0.44 X10^3/uL; Eosinophils% 10.1 % (0-5); Hematocrit 34.4 % (37-47); Hemoglobin 10.3 g/dL (12.0-15.0); Lymphocyte # 0.92 X10^3/ul (0.83-4.51); Lymphocyte % 21.1 % (19-41); Mean Corp Hgb Conc 29.9 g/dL (32-36); Mean Corpuscular Hgb 22.5 pg (27.0-32.0); Mean Corpuscular Volume 75.3 fL (81-99); Monocyte# 0.39 X10^3/uL; NRBC Flagged by Analyzer 0 % (0-5); Neutrophil # 2.56 X10^3/uL (2.7-7.7); Neutrophil % 58.9 % (47-70); Platelet Count 157 K/mm3 (150-450); RBC Distribution Width CV 14.9 % (11.6-14.6); RBC Distribution Width SD 40.1 fl (35.1-43.9); Red Blood Count 4.57 M/mm3 (4.2-5.4); White Blood Count 4.4 K/mm3 (4.4-11.0)
[2025-01-02 18:26] LABS: Microalbumin,Random Urine 20.1 mg/L (NO RANGE EST.); Microalbumin:Creatinine Ratio 134.9 mg/g CRE
[2025-01-02 18:44] LABS: Erythrocyte Sedimentation Rate 4 mm/hr (0-30)
[2025-01-02 18:56] LABS: ALB/GLOB Ratio 1.7 RATIO (0.9-2.4); AST(SGOT) 19 U/L (<=31); Alanine Aminotransfer ALT/SGPT 22 U/L (<=34); Albumin, Serum 4.4 g/dL (3.5-5.0); Alkaline Phosphatase 86 U/L (35-104); Anion Gap 13 (5-15); BUN 15 mg/dL (4-19); BUN/Creat Ratio 18.8 RATIO (10-20); Calcium,Total 9.2 mg/dL (7.6-11.0); Carbon Dioxide 25.5 mmol/L (21.0-32.0); Chloride 98 mmol/L (98-108); Creatinine, Serum 0.78 mg/dL (0.70-1.20); EST Glomerular Filtration Rate 93 (>60); Ferritin 13 ng/mL (22-378); Globulin 2.6 g/dL (2.2-4.2); Glucose 323 mg/dL (70-99); Potassium 3.4 mmol/L (3.3-5.1); Sodium Level 137 mmol/L (133-145); Total Bilirubin 0.25 mg/dL (0.00-1.30); Vitamin B12 452 pg/mL (180-914); Vitamin D,25 Hydroxy 13.7 ng/mL (30-100)
[2025-01-04 12:08] LABS: ANTINUCLEAR ANTIBODIES DIRECT Negative (Negative)
[2025-01-05 19:08] LABS: Alpha-1-Globulins 0.3 g/dL (0.0-0.4); Alpha-2-Globulins 0.7 g/dL (0.4-1.0); Folate, RBC (Hct) Test 36.4 % (34.0-46.6); Folates, RBC Test 1170 ng/mL (>498); Free Kappa Light Chains 13.9 mg/L (3.3-19.4); Free Lambda Light Chains 12.3 mg/L (5.7-26.3); Gamma Globulin 0.8 g/dL (0.4-1.8); Immunoglobulin A 153 mg/dL (87-352); Immunoglobulin G 966 mg/dL (586-1602); Immunoglobulin M 33 mg/dL (26-217); PROEL- TOTAL PROTEIN 6.8 g/dL (6.0-8.5); Vitamin B1, Thiamine 95.1 nmol/L (66.5-200.0)
== END | disposition home or self-care (01) ==
LOC: MTLAB 15:18
PROVIDERS: PCP Internal Medicine; Referring Provider Nurse Practitioner Family; Visit Provider Nurse Practitioner Family
DX: R44.9 Unspecified symptoms and signs involving general sensations and perceptions (principal); E11.9 Type 2 diabetes mellitus without complications; R53.83 Other fatigue
CPT/HCPCS: 36415; 80053; 82043; 82306; 82570; 82607; 82728; 82747; 82784; 83883; 84165; 84425; 84439; 84443; 85014; 85025; 85652; 86038; 86140; 86225; 86334

== ENCOUNTER → 2025-02-06 | Outpatient (CLI) | payer OTHER, SELFPAY ==
--- NOTE | 2025-02-06 16:16 | BI_ITS ---
EXAM: SCRN MAMM (CAD)W/AMY BILAT DATE: 02/06/2025 CLINICAL HISTORY: F, Age 49 y/o , SCREENING TECHNIQUE: SCRN MAMM (CAD)W/AMY BILAT COMPARISON: Prior exam(s) were compared FINDINGS: TISSUE DENSITY: The breasts are heterogeneously dense, which may obscure small masses. Bilateral Breast Mammographic Findings: No suspicious masses, calcifications or other abnormalities are identified. BI/SCRN MAMM (CAD)W/AMY BILAT IMPRESSION: No mammographic evidence of malignancy in either breast. OVERALL FINAL ASSESSMENT BI-RADS 1: NEGATIVE. RECOMMEND ANNUAL MAMMOGRAPHIC SCREENING. RECOMMENDATION: Routine annual follow-up in 1 Year A letter with findings and recommendations will be mailed to the patient. Reading Location: [id number]
--- NOTE | 2025-02-06 16:16 | BI_ITS ---
EXAM: SCRN MAMM (CAD)W/AMY BILAT DATE: 02/06/2025 CLINICAL HISTORY: F, Age 49 y/o , SCREENING TECHNIQUE: SCRN MAMM (CAD)W/AMY BILAT COMPARISON: Prior exam(s) were compared FINDINGS: TISSUE DENSITY: The breasts are heterogeneously dense, which may obscure small masses. Bilateral Breast Mammographic Findings: No suspicious masses, calcifications or other abnormalities are identified. BI/SCRN MAMM (CAD)W/AMY BILAT IMPRESSION: No mammographic evidence of malignancy in either breast. OVERALL FINAL ASSESSMENT BI-RADS 1: NEGATIVE. RECOMMEND ANNUAL MAMMOGRAPHIC SCREENING. RECOMMENDATION: Routine annual follow-up in 1 Year A letter with findings and recommendations will be mailed to the patient. Reading Location: [id number]
== END | disposition home or self-care (01) ==
LOC: OPBI 16:15
PROVIDERS: PCP Internal Medicine; Referring Provider Internal Medicine; Visit Provider Internal Medicine
DX: Z12.31 Encounter for screening mammogram for malignant neoplasm of breast (principal)
CPT/HCPCS: 77063; 77067